=== PATIENT | female | born 1935 | race Caucasian/White ===

== ENCOUNTER 2018-11-17 00:39 | Emergency (ER) | payer MEDICARE ==
[~2018-11-17] VITALS: Ht 162.6 cm; Wt 73.9 kg
[2018-11-17] MEDS ORDERED: DILTIAZEM IV FOR DRIP 125 MG in NS (IVPB) 100 ML IV SCH (01:00)
[2018-11-17] MEDS ORDERED: DILTIAZEM 25 MG/5 ML INJ (CARDIZEM) VIAL IVP ONE (01:00)
[2018-11-17] MEDS ORDERED: ASPIRIN 81 MG CHEW (CHILDREN'S ASA) PO ONE (01:00)
[2018-11-17 01:31] LABS: BASOPHILS # (AUTO) 0.1 10^3/uL (0.0-0.1); BASOPHILS % (AUTO) 1 % (0-10); EOSINOPHILS # (AUTO) 0.3 10^3/uL (0.0-0.3); EOSINOPHILS % (AUTO) 3 % (0-10); HEMATOCRIT 41 % (35-52); HEMOGLOBIN 13.8 G/DL (11.5-16.0); LYMPHOCYTES # (AUTO) 2.7 X 10^3 (1.0-4.0); LYMPHOCYTES % (AUTO) 31 % (12-44); MEAN CORPUSCULAR HEMOGLOBIN 28 PG (25-34); MEAN CORPUSCULAR HGB CONC 34 G/DL (32-36); MEAN CORPUSCULAR VOLUME 84 FL (80-99); MEAN PLATELET VOLUME 10.6 FL (7.4-10.4); MONOCYTES # (AUTO) 1.2 X 10^3 (0.0-1.0); MONOCYTES % (AUTO) 14 % (0-12); NEUTROPHILS # (AUTO) 4.6 X 10^3 (1.8-7.8); NEUTROPHILS % (AUTO) 52 % (42-75); PLATELET COUNT 230 10^3/uL (130-400); RED CELL DISTRIBUTION WIDTH 13.2 % (10.0-14.5)
[2018-11-17 01:38] LABS: ALANINE AMINOTRANSFERASE 12 U/L (0-55); ALBUMIN 4.3 GM/DL (3.2-4.5); ALKALINE PHOSPHATASE 79 U/L (40-136); BILIRUBIN,TOTAL 0.5 MG/DL (0.1-1.0); BUN/CREATININE RATIO 16; CALCIUM 9.3 MG/DL (8.5-10.1); CARBON DIOXIDE 21 MMOL/L (21-32); CHLORIDE 96 MMOL/L (98-107); CREATININE SERUM 0.79 MG/DL (0.60-1.30); GFR ESTIMATED > 60; GLUCOSE 125 MG/DL (70-105); MAGNESIUM 2.1 MG/DL (1.6-2.4); POTASSIUM 4.1 MMOL/L (3.6-5.0); SODIUM 134 MMOL/L (135-145); TOTAL PROTEIN 7.5 GM/DL (6.4-8.2)
--- NOTE | 2018-11-17 01:39 | ED Chest Pain ---
General Stated Complaint: ARRHYTHMIA Source: patient, family Exam Limitations: no limitations History of Present Illness Date Seen by Provider: Nov 17, 2018 Time Seen by Provider: 00:45 Initial Comments Here with report of feeling palpitations and fast heart rate tonight. Does have history of atrial fibrillation and has had rapid ventricular response in the past. Not currently on a blood thinner. She reports that she's had several in the past and the son reports that she has had at least 3 in the past. Denies nausea or vomiting. Denies chest pain or breathing problems. Later patient admitted that she had fever recently and it was noted that she is going to the bathroom about every 15 minutes to urinate. Fever onset yesterday. Denies dysuria or diarrhea. Denies cough or breathing problems. States that she just has muscle aches. Timing/Duration: 1 hour Severity/Quality: moderate Location: central (palpitations) Radiation: no radiation Prior CP/Workup: cardiac cath, other (previous cardiac workup related to atrial fibrillation) Modifying Factors: improves with rest ASA po DRAG SAWYER: Yes (81 mg) NTG SL DRAG SAWYER: No Associated Symptoms: No abdominal pain, No back pain, No diaphoresis, No dizziness; fatigue; No nausea/vomiting, No shortness of breath, No weakness Allergies and Home Medications Allergies Coded Allergies: Beef Containing Products (Verified Allergy, Unknown, 11/17/18) Iodinated Contrast- Oral and IV Dye (Verified Allergy, Unknown, 11/17/18) Penicillins (Verified Allergy, Unknown, 11/17/18) Pork/Porcine Containing Products (Verified Allergy, Unknown, 11/17/18) Hjhiqps-Tgh-Don Reductase Inhibitor (Verified Allergy, Unknown, 11/17/18) propoxyphene (Verified Allergy, Unknown, 11/17/18) Patient Home Medication List Home Medication List Reviewed: Yes Review of Systems Review of Systems Constitutional: see HPI; No chills; fever EENTM: No Symptoms Reported Respiratory: No Symptoms Reported Cardiovascular: See HPI; Denies Chest Pain; Irregular Heart Rate, Palpitations Gastrointestinal: See HPI Genitourinary: No Symptoms Reported Musculoskeletal: muscle pain; No muscle weakness Skin: no symptoms reported All Other Systems Reviewed Negative Unless Noted: Yes Past Uatmojf-Qbvwdq-Ouqjvw Hx Past Med/Social Hx: Reviewed Nursing Past Med/Soc Hx Patient Social History Alcohol Use: Denies Use Recreational Drug Use: No Smoking Status: Never a Smoker Past Medical History Surgeries: Yes Breast, Orthopedic, Tonsillectomy Respiratory: No Cardiac: Yes High Cholesterol, Hypertension, Irregular Heartbeat Neurological: No Gastrointestinal: No Musculoskeletal: Yes Fractures Endocrine: Yes Hypothyroidsim HEENT: Yes Glaucoma Family Medical History Reviewed Nursing Family Hx No Pertinent Family Hx Physical Exam Vital Signs Vital Signs - First Documented 11/17/18 00:44 Temp 98.9 Pulse 133 Resp 18 B/P (MAP) 185/88 (120) Pulse Ox 95 O2 Delivery Room Air Capillary Refill : Height, Weight, BMI Height: '" Weight: lbs. oz. kg; BMI Method: General Appearance: No Apparent Distress, WD/WN HEENT: PERRL/EOMI, Pharynx Normal Neck: Non Tender, Supple Respiratory: Lungs Clear, Normal Breath Sounds Cardiovascular: No Murmur, Irregularly Irregular, Tachycardia Gastrointestinal: Non Tender, Soft Extremity: Normal Range of Motion, Non Tender Neurologic/Psychiatric: Alert, Oriented x3 Skin: Normal Color, Warm/Dry Focused Exam Lactate Level 11/17/18 02:25: Lactic Acid Level 0.73 Lactic Acid Level Laboratory Tests Test 11/17/18 02:25 Lactic Acid Level 0.73 MMOL/L (0.50-2.00) Progress/Results/Core Measures Results/Orders Lab Results Laboratory Tests Test 11/17/18 00:55 11/17/18 02:09 11/17/18 02:25 Range/Units White Blood Count 9.0 4.3-11.0 10^3/uL Red Blood Count 4.89 4.35-5.85 10^6/uL Hemoglobin 13.8 11.5-16.0 G/DL Hematocrit 41 35-52 % Mean Corpuscular Volume 84 80-99 FL Mean Corpuscular Hemoglobin 28 25-34 PG Mean Corpuscular Hemoglobin Concent 34 32-36 G/DL Red Cell Distribution Width 13.2 10.0-14.5 % Platelet Count 230 130-400 10^3/uL Mean Platelet Volume 10.6 H 7.4-10.4 FL Neutrophils (%) (Auto) 52 42-75 % Lymphocytes (%) (Auto) 31 12-44 % Monocytes (%) (Auto) 14 H 0-12 % Eosinophils (%) (Auto) 3 0-10 % Basophils (%) (Auto) 1 0-10 % Neutrophils # (Auto) 4.6 1.8-7.8 X 10^3 Lymphocytes # (Auto) 2.7 1.0-4.0 X 10^3 Monocytes # (Auto) 1.2 H 0.0-1.0 X 10^3 Eosinophils # (Auto) 0.3 0.0-0.3 10^3/uL Basophils # (Auto) 0.1 0.0-0.1 10^3/uL Prothrombin Time 13.1 12.2-14.7 SEC INR Comment 1.0 0.8-1.4 Activated Partial Thromboplast Time 32 24-35 SEC Sodium Level 134 L 135-145 MMOL/L Potassium Level 4.1 3.6-5.0 MMOL/L Chloride Level 96 L 98-107 MMOL/L Carbon Dioxide Level 21 21-32 MMOL/L Anion Gap 17 H 5-14 MMOL/L Blood Urea Nitrogen 13 7-18 MG/DL Creatinine 0.79 0.60-1.30 MG/DL Estimat Glomerular Filtration Rate > 60 BUN/Creatinine Ratio 16 Glucose Level 125 H 70-105 MG/DL Calcium Level 9.3 8.5-10.1 MG/DL Corrected Calcium 9.1 8.5-10.1 MG/DL Magnesium Level 2.1 1.6-2.4 MG/DL Total Bilirubin 0.5 0.1-1.0 MG/DL Aspartate Amino Transf (AST/SGOT) 16 5-34 U/L Alanine Aminotransferase (ALT/SGPT) 12 0-55 U/L Alkaline Phosphatase 79 40-136 U/L Myoglobin < 21.0 10.0-92.0 NG/ML Troponin I < 0.30 <0.30 NG/ML Total Protein 7.5 6.4-8.2 GM/DL Albumin 4.3 3.2-4.5 GM/DL Urine Color YELLOW Urine Clarity CLEAR Urine pH 6.5 5-9 Urine Specific [place] <1.005 1.016-1.022 Urine Protein NEGATIVE NEGATIVE Urine Glucose (UA) NEGATIVE NEGATIVE Urine Ketones NEGATIVE NEGATIVE Urine Nitrite NEGATIVE NEGATIVE Urine Bilirubin NEGATIVE NEGATIVE Urine Urobilinogen 0.2 NORMAL MG/DL Urine Leukocyte Esterase TRACE NEGATIVE Urine RBC (Auto) NEGATIVE NEGATIVE Urine RBC /HPF Urine WBC 0-2 /HPF Urine Crystals NONE /LPF Urine Bacteria /HPF Urine Casts NONE /LPF Urine Mucus NEGATIVE /LPF Urine Culture Indicated NO Lactic Acid Level 0.73 0.50-2.00 MMOL/L My Orders Orders - BYRON RAMIREZ MD Cbc With Automated Diff (11/17/18 00:57) Magnesium (11/17/18 00:57) Chest 1 View Ap/Pa Only (11/17/18 00:57) Ekg Tracing (11/17/18 00:57) Comprehensive Metabolic Panel (11/17/18 00:57) Myoglobin Serum (11/17/18 00:57) Protime With Inr (11/17/18 00:57) Partial Thromboplastin Time (11/17/18 00:57) O2 (11/17/18 00:57) Monitor-Rhythm Ecg Trace Only (11/17/18 00:57) Lipid Panel (11/18/18 06:00) Aspirin Chewable Tablet (Baby Aspirin Ch (11/17/18 01:00) Ed Iv/Invasive Line Start (11/17/18 00:57) Troponin I (11/17/18 00:57) Ns (Ivpb) (Sodium C... W/Diltiazem Iv Fo (11/17/18 01:00) Diltiazem Injection (Cardizem Injection) (11/17/18 01:00) Ns Iv 500 Ml (Sodium Chloride 0.9%) (11/17/18 02:09) Lactic Acid Analyzer (11/17/18 02:09) Ua Culture If Indicated (11/17/18 02:09) Blood Culture (11/17/18 02:09) Enoxaparin Injection (Lovenox Injection) (11/17/18 02:45) Medications Given in ED Current Medications Medications Dose Ordered Sig/Jaylan Route Start Time Stop Time Status Last Admin Dose Admin Aspirin 324 mg ONCE ONCE PO 11/17/18 01:00 11/17/18 01:01 DC 11/17/18 01:30 324 MG Diltiazem HCl 10 mg ONCE ONCE IVP 11/17/18 01:00 11/17/18 01:01 DC 11/17/18 01:29 10 MG Enoxaparin Sodium 70 mg ONCE ONCE SC 11/17/18 02:45 11/17/18 02:46 DC 11/17/18 03:01 70 MG Sodium Chloride 500 ml @ 0 mls/hr Q0M ONCE IV 11/17/18 02:09 11/17/18 02:11 DC 11/17/18 03:01 999 MLS/HR Vital Signs/I&O 11/17/18 11/17/18 00:44 01:30 Temp 98.9 Pulse 133 133 Resp 18 B/P (MAP) 185/88 (120) Pulse Ox 95 O2 Delivery Room Air Progress Progress Note : Progress Note Seen and evaluated. IV, labs, EKG and chest x-ray ordered. ASA 324 mg by mouth ordered. Cardizem 10 mg IV bolus and 10 mg per hour drip initiated. When patient later reported the fever, UA, blood cultures and lactic acid were ordered as wel l as normal saline 500 mL bolus. Monitor patient. 0322: Initiated transfer with [facility] and [facility]. Patient has had repeat bolus of 10 mg of Cardizem and had drip increased to 15 mg an hour. This was subsequently increased to 20 mg an hour and she is showing intermittent atrial fibrillation with rapid ventricular response. Patient did receive Lovenox 70 mg subcutaneous. 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 We did discuss risk and benefit of Lovenox and ultimately decided that she would be okay with trying that. She did not have any adverse effects after injection. The UA is negative. There is no other indication of infection. We will initiate transferred to [place]. [place] [facility] [place] is currently on diversion necessitating need for transfer outside of the area. Tertiary hospitals are equal distance and [facility] is with in that travel zone. Pending call back. 0342: Patient was accepted in the service of Dr. Brown. Patient's family agrees with plan. Initial ECG Impression Date: Nov 17, 2018 Initial ECG Impression Time: 00:47 Initial ECG Rate: 146 Initial ECG Rhythm: A Fib/Flutter Initial ECG Impression: Atrial Fibrillation w/RVR Comment Intrafibrillation with rapid ventricular rate. No evidence of ST elevation VA. No previous available for comparison. Interpreted by me. Diagnostic Imaging Diagonstic Imaging: Xray Plain Films/CT/US/NM/MRI: chest Comments No acute findings Reviewed: Reviewed by Me Departure Impression Primary Impression: Atrial fibrillation with rapid ventricular response Disposition: T-TRM HOSP Condition: Stable Transfer Time Spoke to Accepting Phy: 03:42 Transfer Facility: [facility], [place], [place] Method of Transfer: EMS Departure-Patient Inst. Referrals: PAUL BILLY MD (PCP/Family) Primary Care Physician BYRON RAMIREZ MD Nov 17, 2018 01:39
[2018-11-17 01:53] LABS: PROTHROMBIN TIME PATIENT 13.1 SEC (12.2-14.7)
[2018-11-17] MEDS ORDERED: NS IV 500 ML 500 ML IV ONE (02:09)
[2018-11-17 02:28] LABS: BILIRUBIN,URINE NEGATIVE (NEGATIVE); CLARITY,URINE CLEAR; COLOR,URINE YELLOW; GLUCOSE, URINE (UA) NEGATIVE (NEGATIVE); KETONES,URINE NEGATIVE (NEGATIVE); LEUKOCYTE ESTERASE ,URINE TRACE (NEGATIVE); NITRITE,URINE NEGATIVE (NEGATIVE); PH,URINE 6.5 (5-9); PROTEIN,URINE NEGATIVE (NEGATIVE); UROBILINOGEN,URINE 0.2 MG/DL (NORMAL); WBC,URINE 0-2 /HPF
[2018-11-17] MEDS ORDERED: ENOXAPARIN 80 MG/0.8 ML (LOVENOX) SYR SC ONE (02:45)
[2018-11-17 04:46] VITALS: BP 141/77
--- NOTE | 2018-11-17 09:00 | Diagnostic Imaging Report ---
EXAMINATION: Chest radiograph, portable AP view. DATE: November 17, 2018 at 0137 hours. INDICATION: 83-year-old female, chest pain. COMPARISON: None. FINDINGS: Heart size and mediastinal contours are unremarkable. There are aortic calcifications. There is no identified pneumothorax. There is no large pleural effusion. There are bilateral interstitial opacities. Comparison imaging is not available to assess for possible stability. There are surgical clips along the right lateral chest and projecting near the level of the right hemidiaphragm. IMPRESSION: 1. Bilateral interstitial opacities. Comparison imaging is not available to assess for potential stability. Differential diagnostic considerations would include pulmonary interstitial edema, chronic lung changes, or atypical infectious process. Report was called/faxed to [facility] ER by santiago at 8:59 am. HARRY Lundberg, was also notified. Dictated by: Dictated on workstation # [id number]
--- NOTE | 2018-11-17 09:37 | NUR ---
Faxed a corrected copy of AP chest xray reviewed this a.m. by radiologist to [facility] @ [facility].
== END 2018-11-17 04:00 | disposition short-term general hospital (02) ==
LOC: ER FS 00:42
DX: I48.91 Unspecified atrial fibrillation (principal); I10 Essential (primary) hypertension; E78.00 Pure hypercholesterolemia, unspecified; E03.9 Hypothyroidism, unspecified; Z91.018 Allergy to other foods; Z88.0 Allergy status to penicillin; Z88.8 Allergy status to other drugs, medicaments and biological substances; Z91.041 Radiographic dye allergy status; Z90.89 Acquired absence of other organs
CPT/HCPCS: 36415; 71045; 80053; 81000; 83605; 83735; 83874; 84484; 85025; 85610; 85730; 87040; 93005; 93041

== ENCOUNTER 2019-03-01 02:29 | Emergency (ER) | payer MEDICARE ==
[~2019-03-01] VITALS: Ht 154.9 cm; Wt 72.7 kg
[2019-03-01] MEDS ORDERED: NS IV 1000 ML 1,000 ML IV SCH (02:45)
[2019-03-01] MEDS ORDERED: meTOprolol 5 MG/5 ML (LOPRESSOR) VIAL IV ONE ×4 (02:45→03:45)
--- NOTE | 2019-03-01 02:52 | ED Cardiac General ---
History of Present Illness General Chief Complaint: Cardiac/General Problems Stated Complaint: A-FIB,RVR Nursing Triage Note: PT. CAME TO THE ER BECAUSE SHE WAS IN A-FIB WITH RVR RATE FROM 139 TO 150. PT. HAS A HISTORY OF A-FIB WITH RVR. Source: patient, family Exam Limitations: no limitations History of Present Illness Date Seen by Provider: Mar 01, 2019 Time Seen by Provider: 02:40 Initial Comments For 30 minutes prior to arrival, feeling funny with rapid heart rate. Hx of A. fib w multiple occurrences. Denies CP or SOA, denies abdominal pain. Allergies and Home Medications Allergies Coded Allergies: Beef Containing Products (Verified Allergy, Unknown, 11/17/18) Iodinated Contrast- Oral and IV Dye (Verified Allergy, Unknown, 11/17/18) Penicillins (Verified Allergy, Unknown, 11/17/18) Pork/Porcine Containing Products (Verified Allergy, Unknown, 11/17/18) Yvjafja-Sxu-Aon Reductase Inhibitor (Verified Allergy, Unknown, 11/17/18) propoxyphene (Verified Allergy, Unknown, 11/17/18) Home Medications Metoprolol Tartrate 25 Mg Tablet, 25 MG PO BID Prescribed by: CORTNEY ARRIAGA on 03/01/19 6113 Patient Home Medication List Home Medication List Reviewed: Yes Review of Systems Review of Systems Constitutional: No chills, No dizziness, No fever; malaise; No weakness Respiratory: Denies Cough, Denies Orthopnea, Denies Shortness of Air Cardiovascular: Denies Chest Pain; Irregular Heart Rate; Denies Lightheadedness; Palpitations; Denies Syncope Gastrointestinal: Denies Abdomen Distended, Denies Abdominal Pain, Denies Nausea, Denies Vomiting Musculoskeletal: No back pain, No neck pain Past Xdxzelw-Tmziaz-Buzvlj Hx Past Med/Social Hx: Reviewed Nursing Past Med/Soc Hx Patient Social History Recent Foreign Travel: No Contact w/Someone Who Travel: No Recent Infectious Disease Expo: No Past Medical History Surgeries: Yes Breast, Orthopedic, Tonsillectomy Respiratory: No Cardiac: Yes High Cholesterol, Hypertension, Irregular Heartbeat Neurological: No Gastrointestinal: No Musculoskeletal: Yes Fractures Endocrine: Yes Hypothyroidsim HEENT: Yes Glaucoma Family Medical History No Pertinent Family Hx Physical Exam Vital Signs Vital Signs - First Documented 03/01/19 03/01/19 02:30 03:57 Temp 36.3 Pulse 146 Resp 20 B/P (MAP) 176/82 (113) Pulse Ox 99 O2 Delivery Room Air Capillary Refill : Less Than 3 Seconds Height, Weight, BMI Height: 5'4.00" Weight: 163lbs. 0oz. 73.643566ef; 30.00 BMI Method:Stated General Appearance: No Apparent Distress, WD/WN HEENT: PERRL/EOMI, Normal ENT Inspection Neck: Full Range of Motion, Normal Inspection, Non Tender Respiratory: Chest Non Tender, Lungs Clear, No Respiratory Distress Cardiovascular: No Edema, No Gallop, No JVD, Normal Peripheral Pulses, Irregularly Irregular, Tachycardia Gastrointestinal: Normal Bowel Sounds, Non Tender, Soft Extremity: Normal Inspection, Non Tender, No Pedal Edema Progress/Results/Core Measures Results/Orders Lab Results Laboratory Tests Test 03/01/19 02:36 Range/Units White Blood Count 6.9 4.3-11.0 10^3/uL Red Blood Count 4.96 4.35-5.85 10^6/uL Hemoglobin 13.8 11.5-16.0 G/DL Hematocrit 42 35-52 % Mean Corpuscular Volume 85 80-99 FL Mean Corpuscular Hemoglobin 28 25-34 PG Mean Corpuscular Hemoglobin Concent 33 32-36 G/DL Red Cell Distribution Width 13.6 10.0-14.5 % Platelet Count 242 130-400 10^3/uL Mean Platelet Volume 10.5 H 7.4-10.4 FL Neutrophils (%) (Auto) 42 42-75 % Lymphocytes (%) (Auto) 42 12-44 % Monocytes (%) (Auto) 13 H 0-12 % Eosinophils (%) (Auto) 2 0-10 % Basophils (%) (Auto) 1 0-10 % Neutrophils # (Auto) 2.9 1.8-7.8 X 10^3 Lymphocytes # (Auto) 2.9 1.0-4.0 X 10^3 Monocytes # (Auto) 0.9 0.0-1.0 X 10^3 Eosinophils # (Auto) 0.2 0.0-0.3 10^3/uL Basophils # (Auto) 0.1 0.0-0.1 10^3/uL Sodium Level 138 135-145 MMOL/L Potassium Level 4.2 3.6-5.0 MMOL/L Chloride Level 103 98-107 MMOL/L Carbon Dioxide Level 22 21-32 MMOL/L Anion Gap 13 5-14 MMOL/L Blood Urea Nitrogen 17 7-18 MG/DL Creatinine 0.91 0.60-1.30 MG/DL Estimat Glomerular Filtration Rate 59 BUN/Creatinine Ratio 19 Glucose Level 121 H 70-105 MG/DL Calcium Level 9.2 8.5-10.1 MG/DL Corrected Calcium 8.9 8.5-10.1 MG/DL Magnesium Level 2.2 1.6-2.4 MG/DL Total Bilirubin 0.3 0.1-1.0 MG/DL Aspartate Amino Transf (AST/SGOT) 20 5-34 U/L Alanine Aminotransferase (ALT/SGPT) 13 0-55 U/L Alkaline Phosphatase 84 40-136 U/L Troponin I < 0.30 <0.30 NG/ML Total Protein 7.1 6.4-8.2 GM/DL Albumin 4.4 3.2-4.5 GM/DL My Orders Orders - CORTNEY ARRIAGA DO Metoprolol Tartrate Injection (Lopressor (03/01/19 02:45) Ns Iv 1000 Ml (Sodium Chloride 0.9%) (03/01/19 02:45) Ed Iv/Invasive Line Start (03/01/19 02:43) Cbc With Automated Diff (03/01/19 02:43) Comprehensive Metabolic Panel (03/01/19 02:43) Troponin I Fs (03/01/19 02:43) Chest 1 View Ap/Pa Only (03/01/19 02:43) Magnesium (03/01/19 02:45) Ekg Tracing (03/01/19 02:53) Metoprolol Tartrate Injection (Lopressor (03/01/19 03:15) Metoprolol Tartrate Injection (Lopressor (03/01/19 03:15) Metoprolol Tartrate (Ir) Tab (Lopressor (03/01/19 03:15) Metoprolol Tartrate Injection (Lopressor (03/01/19 03:45) Medications Given in ED Current Medications Medications Dose Ordered Sig/Jaylan Route Start Time Stop Time Status Last Admin Dose Admin Metoprolol Tartrate 5 mg ONCE ONCE IV 03/01/19 02:45 03/01/19 02:46 DC 03/01/19 02:57 5 MG Metoprolol Tartrate 5 mg ONCE ONCE IV 03/01/19 03:15 03/01/19 03:16 DC 03/01/19 03:09 5 MG Metoprolol Tartrate 5 mg ONCE ONCE IV 03/01/19 03:15 03/01/19 03:16 DC 03/01/19 03:18 5 MG Metoprolol Tartrate 5 mg ONCE ONCE IV 03/01/19 03:45 03/01/19 03:46 DC 03/01/19 03:40 5 MG Metoprolol Tartrate 25 mg ONCE ONCE PO 03/01/19 03:15 03/01/19 03:16 DC 03/01/19 03:16 25 MG Vital Signs/I&O 03/01/19 03/01/19 02:30 03:57 Temp 36.3 36.3 Pulse 146 51 Resp 20 16 B/P (MAP) 176/82 (113) 126/80 Pulse Ox 99 O2 Delivery Room Air Room Air Blood Pressure Mean: 113 POS Progress Progress Note : Progress Note given 5mg metoprolol IV x 4 and 25mg po and finally converted and slowed to rate of 50. Patient tolerated well. Discussed Cardio f/u and Rx given to take as needed for rapid heart rate Initial ECG Impression Time: 02:40 Initial ECG Rhythm: A Fib/Flutter Initial ECG Impression: Atrial Fibrillation w/RVR Initial ECG Comparisson: No Previous ECG Available Departure Impression Primary Impression: Atrial fibrillation Qualified Codes: I48.0 - Paroxysmal atrial fibrillation Disposition: 01 HOME, SELF-CARE Condition: Improved Departure-Patient Inst. Referrals: PAUL BILLY MD (PCP/Family) Primary Care Physician Patient Instructions: Atrial Fibrillation (DC) Scripts Metoprolol Tartrate (Metoprolol Tartrate) 25 Mg Tablet 25 MG PO BID for Supraventricular Tachycar, #20 TAB Prov: CORTNEY ARRIAGA DO 03/01/19 CORTNEY ARRIAGA DO Mar 01, 2019 02:52 POS
[2019-03-01 03:10] LABS: BASOPHILS % (AUTO) 1 % (0-10); EOSINOPHILS % (AUTO) 2 % (0-10); HEMATOCRIT 42 % (35-52); HEMOGLOBIN 13.8 G/DL (11.5-16.0); LYMPHOCYTES % (AUTO) 42 % (12-44); MEAN CORPUSCULAR HEMOGLOBIN 28 PG (25-34); MEAN CORPUSCULAR HGB CONC 33 G/DL (32-36); MEAN CORPUSCULAR VOLUME 85 FL (80-99); MEAN PLATELET VOLUME 10.5 FL (7.4-10.4); MONOCYTES % (AUTO) 13 % (0-12); NEUTROPHILS % (AUTO) 42 % (42-75); PLATELET COUNT 242 10^3/uL (130-400); RED CELL DISTRIBUTION WIDTH 13.6 % (10.0-14.5); WHITE BLOOD COUNT 6.9 10^3/uL (4.3-11.0)
[2019-03-01 03:11] LABS: BASOPHILS # (AUTO) 0.1 10^3/uL (0.0-0.1); EOSINOPHILS # (AUTO) 0.2 10^3/uL (0.0-0.3); LYMPHOCYTES # (AUTO) 2.9 X 10^3 (1.0-4.0); MONOCYTES # (AUTO) 0.9 X 10^3 (0.0-1.0); NEUTROPHILS # (AUTO) 2.9 X 10^3 (1.8-7.8)
[2019-03-01] MEDS ORDERED: meTOprolol TARTRATE 25 MG (LOPRESSOR) TABLET PO ONE (03:15)
--- NOTE | 2019-03-01 03:30 | NUR ---
AFTER THE FIRST DOSE OF LOPRESSOR THE PT CONVERTED TO A SR BUT WENT RIGHT BACK INTO A-FIB.
[2019-03-01 03:31] LABS: POTASSIUM 4.2 MMOL/L (3.6-5.0); SODIUM 138 MMOL/L (135-145)
[2019-03-01 03:32] LABS: ALANINE AMINOTRANSFERASE 13 U/L (0-55); ALBUMIN 4.4 GM/DL (3.2-4.5); ALKALINE PHOSPHATASE 84 U/L (40-136); BILIRUBIN,TOTAL 0.3 MG/DL (0.1-1.0); BUN/CREATININE RATIO 19; CALCIUM 9.2 MG/DL (8.5-10.1); CARBON DIOXIDE 22 MMOL/L (21-32); CHLORIDE 103 MMOL/L (98-107); CREATININE SERUM 0.91 MG/DL (0.60-1.30); GFR ESTIMATED 59; GLUCOSE 121 MG/DL (70-105); MAGNESIUM 2.2 MG/DL (1.6-2.4); TOTAL PROTEIN 7.1 GM/DL (6.4-8.2)
[2019-03-01 03:57] VITALS: BP 126/80
[2019-03-01] MEDS ORDERED: METO-333 PO (03:58)
--- NOTE | 2019-03-01 07:00 | Diagnostic Imaging Report ---
INDICATION: Atrial fibrillation with rapid ventricular rate. Comparison made to prior study from 11/17/2018. FINDINGS: Heart size unchanged from previous examination. Some mild interstitial changes within the lungs appear chronic. There is no effusion. There is no pneumothorax. There is no current evidence to suggest failure. There are multiple surgical clips along the right lateral chest wall. IMPRESSION: 1. No radiographic evidence of an acute cardiopulmonary process. There is no current edema. Heart size appears stable. Dictated by: Dictated on workstation # [id number]
== END 2019-03-01 04:02 | disposition home or self-care (01) ==
LOC: EDUNIT# 02:29 → ER FS 02:31
DX: I48.91 Unspecified atrial fibrillation (principal); I10 Essential (primary) hypertension; E78.00 Pure hypercholesterolemia, unspecified; E03.9 Hypothyroidism, unspecified; Z88.0 Allergy status to penicillin; Z91.041 Radiographic dye allergy status; Z88.8 Allergy status to other drugs, medicaments and biological substances; Z90.89 Acquired absence of other organs
CPT/HCPCS: 36415; 71045; 80053; 83735; 84484; 85025; 93005; 96361; 96374

== ENCOUNTER 2019-07-01 04:19 | Emergency (ER) | payer MEDICARE ==
[~2019-07-01] VITALS: Ht 160 cm; Wt 73.9 kg
[~2019-07-01 04:19] MED LIST: METO-333 PO
--- OUTSIDE RECORDS SUMMARY | 2019-07-01 04:26 | XMS REPORT | Continuity of Care Document ---
Author Organization Unknown Address Unknown Phone Unavailable Allergies Active Description Code Type Severity Reaction Onset Reported/Identified Relationship to Patient Clinical Status Yes Beef Containing Products [id number] Drug Allergy Unknown N/A 11/17/2018 Yes Iodinated Contrast Media [id number] Drug Allergy Unknown N/A 11/17/2018 Yes Iodinated Contrast- Oral and IV Dye [id number] Drug Allergy Unknown N/A 11/17/2018 Yes Penicillins [id number] Drug Aller gy Unknown N/A 11/17/2018 Yes Pork/Porcine Containing Products [id number] Drug Allergy Unknown N/A 019 Yes propoxyphene [id number] Drug Allergy Unknown N/A 11/17/2018 Yes Jdqamdi-Kcn-Uph Reductase Inhibitor [id number] Drug Allergy Unknown N/A 11/17/2018 Medications There is no data. Problems Date Dx Coded Attending Type Code Diagnosis Diagnosed By 11/17/2018 BYRON RAMIREZ MD Ot E03.9 HYPOTHYROIDISM, UNSPECIFIED 11/17/2018 BYRON RAMIREZ MD Ot E78.00 PURE HYPERCHOLESTEROLEMIA, UNSPECIFIED 11/17/2018 BYRON RAMIREZ MD Ot I10 ESSENTIAL (PRIMARY) HYPERTENSION 11/17/2018 BYRON RAMIREZ MD Ot I48.91 UNSPECIFIED ATRIAL FIBRILLATION 11/17/2018 BYRON RAMIREZ MD Ot R00.2 PALPITATIONS 11/17/2018 BYRON RAMIREZ MD Ot Z88.0 ALLERGY STATUS TO PENICILLIN 11/17/2018 BYRON RAMIREZ MD Ot Z88.8 ALLERGY STATUS TO OTH DRUG/MEDS/BIOL SUB 11/17/2018 BYRON RAMIREZ MD Ot Z90.89 ACQUIRED ABSENCE OF OTHER ORGANS 11/17/2018 BYRON RAMIREZ MD Ot Z91.018 ALLERGY TO OTHER FOODS 11/17/2018 BYRON RAMIREZ MD Ot Z91.041 RADIOGRAPHIC DYE ALLERGY STATUS 11/20/2018 BYRON ARMIREZ MD Ot E03.9 HYPOTHYROIDISM, UNSPECIFIED 11/20/2018 BYRON RAMIREZ MD Ot E78.00 PURE HYPERCHOLESTEROLEMIA, UNSPECIFIED 11/20/2018 BYRON RAMIREZ MD Ot I10 ESSENTIAL (PRIMARY) HYPERTENSION 11/20/2018 BYRON RAMIREZ MD Ot I48.91 UNSPECIFIED ATRIAL FIBRILLATION 11/20/2018 BYRON RAMIREZ MD Ot R00.2 PALPITATIONS 11/20/2018 BYRON RAMIREZ MD Ot Z88.0 ALLERGY STATUS TO PENICILLIN 11/20/2018 BYRON RAMIREZ MD Ot Z88.8 ALLERGY STATUS TO OTH DRUG/MEDS/BIOL SUB 11/20/2018 BYRON RAMIREZ MD Ot Z90.89 ACQUIRED ABSENCE OF OTHER ORGANS 11/20/2018 BYRON RAMIREZ MD Ot Z91.018 ALLERGY TO OTHER FOODS 11/20/2018 BYRON RAMIREZ MD Ot Z91.041 RADIOGRAPHIC DYE ALLERGY STATUS 03/01/2019 ROVENSTINE DO, CORTNEY L Ot E03.9 HYPOTHYROIDISM, UNSPECIFIED 03/01/2019 ROVENSTINE DO, CORTNEY L Ot E78.00 PURE HYPERCHOLESTEROLEMIA, UNSPECIFIED 03/01/2019 ROVENSTINE DO, CORTNEY L Ot I10 ESSENTIAL (PRIMARY) HYPERTENSION 03/01/2019 ROVENSTINE DO, CORTNEY L Ot I48.91 UNSPECIFIED ATRIAL FIBRILLATION 03/01/2019 ROVENSTINE DO, CORTNEY L Ot Z88.0 ALLERGY STATUS TO PENICILLIN 03/01/2019 ROVENSTINE DO, CORTNEY L Ot Z88.8 ALLERGY STATUS TO OTH DRUG/MEDS/BIOL SUB 03/01/2019 ROVENSTINE DO, CORTNEY L Ot Z90.89 ACQUIRED ABSENCE OF OTHER ORGANS 03/01/2019 ROVENSTINE DO, CORTNEY L Ot Z91.041 RADIOGRAPHIC DYE ALLERGY STATUS 03/04/2019 ROVENSTINE DO, CORTNEY L Ot E03.9 HYPOTHYROIDISM, UNSPECIFIED 03/04/2019 ROVENSTINE DO, CORTNEY L Ot E78.00 PURE HYPERCHOLESTEROLEMIA, UNSPECIFIED 03/04/2019 ROVENSTINE DO, CORTNEY L Ot I10 ESSENTIAL (PRIMARY) HYPERTENSION 03/04/2019 ROVENSTINE DO, CORTNEY L Ot I48.91 UNSPECIFIED ATRIAL FIBRILLATION 03/04/2019 ROVENSTINE CORTNEY CHAPMAN Ot Z88.0 ALLERGY STATUS TO PENICILLIN 03/04/2019 TITOVENSTINE CORTNEY CHAPMAN Ot Z88.8 ALLERGY STATUS TO OTH DRUG/MEDS/BIOL SUB 03/04/2019 AURYSTCORTNEY HOWARD DO Ot Z90.89 ACQUIRED ABSENCE OF OTHER ORGANS 03/04/2019 AURYSTCORTNEY HOWARD DO Ot Z91.041 RADIOGRAPHIC DYE ALLERGY STATUS Procedures There is no data. Results Test Result Range LIPID PANEL - 08/02/18 08:14 CHOLESTEROL, TOTAL 230 mg/dL <200 HDL CHOLESTEROL 53 mg/dL >50 TRIGLYCERIDES 148 mg/dL <150 LDL-CHOLESTEROL 150 mg/dL (calc) NRG CHOL/HDLC RATIO 4.3 (calc) <5.0 NON HDL CHOLESTEROL 177 mg/dL (calc) <13 0 CMP - 08/02/18 08:14 GLUCOSE 94 mg/dL 65-99 UREA NITROGEN (BUN) 11 mg/dL 7-25 CREATININE 0.85 mg/dL 0.60-0.88 eGFR NON-AFR. GABONESE 64 mL/min/1.73m2 > OR = 60 eGFR 74 mL/min/1.73m2 > OR = 60 BUN/CREATININE RATIO NOT APPLICABLE (calc) 6-22 SODIUM 137 mmol/L 135-146 POTASSIUM 4.2 mmol/L 3.5-5.3 CHLORIDE 103 mmol/L 98-110 CARBON DIOXIDE 24 mmol/L 20-32 CALCIUM 9.4 mg/dL 8.6-10.4 PROTEIN, TOTAL 7.0 g/dL 6.1-8.1 ALBUMIN 4.6 g/dL 3.6-5.1 GLOBULIN 2.4 g/dL (calc) 1.9-3.7 ALBUMIN/GLOBULIN RATIO 1.9 (calc) 1.0-2. 5 BILIRUBIN, TOTAL 0.6 mg/dL 0.2-1.2 ALKALINE PHOSPHATASE 67 U/L 33-130 AST 22 U/L 10-35 ALT 14 U/L 6-29 TSH - 08/02/18 08:14 TSH 5.18 mIU/L 0.40-4.50 TSH - 09/17/18 09:24 TSH 1.63 mIU/L 0.40-4.50 Complete blood count (CBC) with automate d white blood cell (WBC) differential - 11/17/18 00:55 Blood leukocytes automated count (number/volume) 9.0 10*3/uL 4.3-11.0 Blood erythrocytes automated count (number/volume) 4.89 10*6/uL 4.35-5.85 Venous blood hemoglobin measurement (mass/volume) 13.8 g/dL 11.5-16.0 Blood hematocrit (volume fraction) 41 % 35-52 Automated erythrocyte mean corpuscular volume 84 [ foz_us] 80-99 Automated erythrocyte mean corpuscular h emoglobin (mass per erythrocyte) 28 pg 25-34 Automated erythrocyte mean corpuscular h emoglobin concentration measurement (mass/volume) 34 g/dL 32-36 Automated erythrocyte distribution width ratio 13. 2 % 10.0- 14.5 Automated blood platelet count (count/volume) 230 10*3/uL 130-400 Automated blood platelet mean volume measurement 10.6 [foz_us] 7.4-10.4 Automated blood neutrophils/100 leukocytes 52 % 42-75 Automated blood lymphocytes/100 leukocytes 31 % 12-44 Blood monocytes/100 leukocytes 14 % 0-12 Automated blood eosinophils/100 leukocytes 3 % 0-10 Automated blood basophils/100 leukocytes 1 % 0-10 Blood neutrophils automated count (number/volume) 4.6 10*3 1.8-7.8 Blood lymphocytes automated count (number/volume) 2.7 10*3 1.0-4.0 Blood monocytes automated count (number/volume) 1. 2 10*3 0.0-1.0 Automated eosinophil count 0.3 10*3/uL 0 .0-0.3 Automated blood basophil count (count/volume) 0.1 10*3/uL 0.0-0.1 Serum or plasma troponin i.cardiac measu rement (mass/volume) - 11/17/18 00:55 Serum or plasma troponin i.cardiac measurement (mass/v olume) < ng/mL <0.30 Comprehensive metabolic panel - 11/17/18 00:55 Serum or plasma sodium measurement (moles/volume) 134 mmol/L 135-145 Serum or plasma potassium measurement (moles/volume) 4.1 mmol/L 3.6-5.0 Serum or plasma chloride measurement (moles/volume) 96 mmol/L 98-107 Carbon dioxide 21 mmol/L 21-32 Serum or plasma anion gap determination (moles/volume) 17 mmol/L 5-14 Serum or plasma urea nitrogen measurement (mass/volume ) 13 mg/dL 7-18 Serum or plasma creatinine measurement (mass/volume) 0.79 mg/dL 0.60-1.30 Serum or plasma urea nitrogen/creatinine mass ratio 16 NRG Serum or plasma creatinine measurement w ith calculation of estimated glomerular filtration rate > NRG Serum or plasma glucose measurement (mass/volume) 125 mg/dL 70-105 Serum or plasma calcium measurement (mass/volume) 9.3 mg/dL 8.5-10.1 Serum or plasma total bilirubin measurement (mass/volu me) 0.5 mg/dL 0.1-1.0 Serum or plasma alkaline phosphatase shannon surement (enzymatic activity/volume) 79 U/L 40-136 Serum or plasma aspartate aminotransfera se measurement (enzymatic activity/volume) 16 U/L 5-34 Serum or plasma alanine aminotransferase measurement (enzymatic activity/volume) 12 U/L 0-55 Serum or plasma protein measurement (mass/volume) 7.5 g/dL 6.4-8.2 Serum or plasma albumin measurement (mass/volume) 4.3 g/dL 3.2-4.5 CALCIUM CORRECTED 9.1 mg/dL 8.5-10.1 Magnesium - 11/17/18 00:55 Magnesium 2.1 mg/dL 1.6-2.4 PT panel in platelet poor plasma by coag ulation assay - 11/17/18 00:55 Prothrombin time (PT) in platelet poor plasma by coagu lation assay 13.1 s 12.2-14.7 INR in platelet poor plasma or blood by coagulation as say 1.0 0.8-1.4 Activated partial thromboplastin time (a PTT) in platelet poor plasma bycoagulation assay - 11/17/18 00:55 Activated partial thromboplastin time (a PTT) in platelet poor plasma bycoagulation assay 32 s 24-35 Myoglobin, serum - 11/17/18 00:55 Myoglobin, serum < ng/mL 10.0-92.0 Complete urinalysis with reflex to cultu re - 11/17/18 02:09 Urine color determination YELLOW NRG Urine clarity determination CLEAR NR G Urine pH measurement by test strip 6.5 5-9 Specific gravity of urine by test strip < 1.016-1.022 Urine protein assay by test strip, semi-quantitative NEGATIVE NEGATIVE Urine glucose detection by automated test strip NE GATIVE NEGATIVE Erythrocytes detection in urine sediment by light micr oscopy NEGATIVE NEGATIVE Urine ketones detection by automated test strip NE GATIVE NEGATIVE Urine nitrite detection by test strip NEGATIVE NEGATIVE Urine total bilirubin detection by test strip NEGA TIVE NEGATIVE Urine urobilinogen measurement by automated test strip (mass/volume) 0.2 mg/dL NORMAL Urine leukocyte esterase detection by dipstick TRA CE NEGATIVE Automated urine sediment leukocyte count by microscopy (number/high power field) [HPF] NRG Crystals detection in urine sediment by light microsco py NONE NRG Casts detection in urine sediment by light microscopy NONE NRG Mucus detection in urine sediment by light microscopy NEGATIVE NRG Complete urinalysis with reflex to culture NO NRG Blood lactic acid measurement (moles/vol ume) - 11/17/18 02:25 Blood lactic acid measurement (moles/volume) 0.73 mmol/L 0.50-2.00 Bacterial blood culture - 11/17/18 02:25 Bacterial blood culture NG NRG Bacterial blood culture - 11/17/18 03:47 Bacterial blood culture NG NRG Complete blood count (CBC) with automate d white blood cell (WBC) differential - 03/01/19 02:36 Blood leukocytes automated count (number/volume) 6.9 10*3/uL 4.3-11.0 Blood erythrocytes automated count (number/volume) 4.96 10*6/uL 4.35-5.85 Venous blood hemoglobin measurement (mass/volume) 13.8 g/dL 11.5-16.0 Blood hematocrit (volume fraction) 42 % 35-52 Automated erythrocyte mean corpuscular volume 85 [ foz_us] 80-99 Automated erythrocyte mean corpuscular h emoglobin (mass per erythrocyte) 28 pg 25-34 Automated erythrocyte mean corpuscular h emoglobin concentration measurement (mass/volume) 33 g/dL 32-36 Automated erythrocyte distribution width ratio 13. 6 % 10.0- 14.5 Automated blood platelet count (count/volume) 242 10*3/uL 130-400 Automated blood platelet mean volume measurement 10.5 [foz_us] 7.4-10.4 Automated blood neutrophils/100 leukocytes 42 % 42-75 Automated blood lymphocytes/100 leukocytes 42 % 12-44 Blood monocytes/100 leukocytes 13 % 0-12 Automated blood eosinophils/100 leukocytes 2 % 0-10 Automated blood basophils/100 leukocytes 1 % 0-10 Blood neutrophils automated count (number/volume) 2.9 10*3 1.8-7.8 Blood lymphocytes automated count (number/volume) 2.9 10*3 1.0-4.0 Blood monocytes automated count (number/volume) 0. 9 10*3 0.0-1.0 Automated eosinophil count 0.2 10*3/uL 0 .0-0.3 Automated blood basophil count (count/volume) 0.1 10*3/uL 0.0-0.1 Comprehensive metabolic panel - 03/01/19 02:36 Serum or plasma sodium measurement (moles/volume) 138 mmol/L 135-145 Serum or plasma potassium measurement (moles/volume) 4.2 mmol/L 3.6-5.0 Serum or plasma chloride measurement (moles/volume) 103 mmol/L 98-107 Carbon dioxide 22 mmol/L 21-32 Serum or plasma anion gap determination (moles/volume) 13 mmol/L 5-14 Serum or plasma urea nitrogen measurement (mass/volume ) 17 mg/dL 7-18 Serum or plasma creatinine measurement (mass/volume) 0.91 mg/dL 0.60-1.30 Serum or plasma urea nitrogen/creatinine mass ratio 19 NRG Serum or plasma creatinine measurement w ith calculation of estimated glomerular filtration rate 59 NRG Serum or plasma glucose measurement (mass/volume) 121 mg/dL 70-105 Serum or plasma calcium measurement (mass/volume) 9.2 mg/dL 8.5-10.1 Serum or plasma total bilirubin measurement (mass/volu me) 0.3 mg/dL 0.1-1.0 Serum or plasma alkaline phosphatase shannon surement (enzymatic activity/volume) 84 U/L 40-136 Serum or plasma aspartate aminotransfera se measurement (enzymatic activity/volume) 20 U/L 5-34 Serum or plasma alanine aminotransferase measurement (enzymatic activity/volume) 13 U/L 0-55 Serum or plasma protein measurement (mass/volume) 7.1 g/dL 6.4-8.2 Serum or plasma albumin measurement (mass/volume) 4.4 g/dL 3.2-4.5 CALCIUM CORRECTED 8.9 mg/dL 8.5-10.1 Magnesium - 03/01/19 02:36 Magnesium 2.2 mg/dL 1.6-2.4 TROPONIN I FS - 03/01/19 02:36 TROPONIN I FS < 0.30 <0.30 CMP - 05/26/19 10:41 GLUCOSE 120 mg/dL 65-139 UREA NITROGEN (BUN) 13 mg/dL 7-25 CREATININE 0.97 mg/dL 0.60-0.88 eGFR NON-AFR. GABONESE 54 mL/min/1.73m2 > OR = 60 eGFR 63 mL/min/1.73m2 > OR = 60 BUN/CREATININE RATIO 13 (calc) 6-22 SODIUM 135 mmol/L 135-146 POTASSIUM 4.2 mmol/L 3.5-5.3 CHLORIDE 100 mmol/L 98-110 CARBON DIOXIDE 23 mmol/L 20-32 CALCIUM 9.7 mg/dL 8.6-10.4 PROTEIN, TOTAL 7.2 g/dL 6.1-8.1 ALBUMIN 4.6 g/dL 3.6-5.1 GLOBULIN 2.6 g/dL (calc) 1.9-3.7 ALBUMIN/GLOBULIN RATIO 1.8 (calc) 1.0-2. 5 BILIRUBIN, TOTAL 0.6 mg/dL 0.2-1.2 ALKALINE PHOSPHATASE 73 U/L 37-153 AST 19 U/L 10-35 ALT 16 U/L 6-29 TSH - 05/26/19 10:41 TSH 2.03 mIU/L 0.40-4.50 Encounters ACCT No. Visit Date/Time Discharge Status Pt. Type Provider Facility Loc./Unit Complaint [id number] 01/24/2019 09:20:00 01/24/2019 23:59: 59 [facility] Outpatient PAUL BILLY [facility] [id number] 05/26/2019 09:00:00 Document Registration [id number] 09/17/2018 09:30:00 Document Registration [id number] 08/02/2018 08:30:00 Document Registration [id number] 03/01/2019 02:31:00 019 04:02:00 DIS Emergency CORTNEY ARRIAGA DO [facility] FS A-FIB,RVR [id number] 11/17/2018 00:42:00 019 04:00:00 DIS Emergency ASHLEY RYAN, [address] [facility] FS PALPITATIONS
[2019-07-01] MEDS ORDERED: NS IV 500 ML 500 ML IV STA (04:39)
--- NOTE | 2019-07-01 04:44 | ED Cardiac General ---
History of Present Illness General Chief Complaint: Cardiac/General Problems Stated Complaint: A-FIB Source: patient, RN notes reviewed, old records Exam Limitations: no limitations (CONSTANCE SIMMONS MD) History of Present Illness Date Seen by Provider: Jul 01, 2019 Time Seen by Provider: 04:30 Initial Comments This patient is an 83-year-old female presents to the emergency department complaining of palpitations. Patient has a long history of atrial fibrillation and takes metoprolol for same. Patient states when her atrial fibrillation happens usually happens with she's asleep. Patient's heart rate is 110-120 A. fib rhythm. Patient denies any shortness of breath. This is a chronic condition for this patient. Patient denies chest pain. Timing/Duration: 1 hour Severity: mild Activities at Onset: none Prior CP/Workup: echocardiography Modifying Factors: worse with antacids, worse with breathing, worse with coughing, worse with defecting, worse with eating, worse with exercise, worse with lying down, worse with morphine, worse with movement, worse with nitroglycerin, worse with oxygen, worse with palpation, worse with rest, worse with other Associated Systoms: Denies Symptoms; No Chest Pain, No Cough, No Diaphoresis, No Fever/Chills, No Headaches, No Loss of Appetite, No Malaise, No Nausea/Vomiting, No Rash, No Seizure, No Shortness of Air, No Syncope, No Weakness, No Other (CONSTANCE SIMMONS MD) Allergies and Home Medications Allergies Coded Allergies: Beef Containing Products (Verified Allergy, Unknown, 11/17/18) Iodinated Contrast- Oral and IV Dye (Verified Allergy, Unknown, 11/17/18) Penicillins (Verified Allergy, Unknown, 11/17/18) Pork/Porcine Containing Products (Verified Allergy, Unknown, 11/17/18) Yunjvfp-Jpv-Dke Reductase Inhibitor (Verified Allergy, Unknown, 11/17/18) propoxyphene (Verified Allergy, Unknown, 11/17/18) Home Medications Metoprolol Tartrate 25 Mg Tablet, 25 MG PO BID Prescribed by: CORTNEY ARRIAGA on 03/01/19 0359 Patient Home Medication List Home Medication List Reviewed: Yes (CONSTANCE SIMMONS MD) Review of Systems Review of Systems Constitutional: No no symptoms reported; see HPI; No chills, No diaphoresis, No dizziness, No fever, No malaise, No weakness, No weight gain, No weight loss, No other EENTM: No No Symptoms Reported, No See HPI, No Blurred Vision, No Double Vision, No Eye Pain, No Eye Tearing, No Ear Drainage, No Ear Pain, No Mouth Pain, No Mouth Swelling, No Nose Congestion, No Nose Pain, No Throat Pain, No Throat Swelling, No Other Respiratory: Denies No Symptoms Reported, Denies See HPI, Denies Cough, Denies Orthopnea, Denies Shortness of Air, Denies SOA With Exertion, Denies SOA at Rest, Denies Stridor, Denies Wheezing, Denies Other Cardiovascular: Denies No Symptoms Reported; See HPI; Denies Chest Pain, Denies Edema; Irregular Heart Rate; Denies Lightheadedness; Palpitations; Denies Syncope, Denies Other Gastrointestinal: Denies No Symptoms Reported, Denies See HPI, Denies Abdomen Distended, Denies Abdominal Pain, Denies Blood Streaked Stools, Denies Constipated, Denies Diarrhea, Denies Difficulty Swallowing, Denies Nausea, Denies Poor Appetite, Denies Poor Fluid Intake, Denies Rectal Bleeding, Denies Vomiting, Denies Other Genitourinary: Denies No Symptoms Reported, Denies See HPI, Denies Burning, Denies Discharge, Denies Drainage, Denies Frequency, Denies Flank Pain, Denies Hematuria, Denies Incontinence, Denies Pain, Denies Urgency, Denies Other Musculoskeletal: No no symptoms reported, No see HPI, No back pain, No gout, No joint pain, No joint swelling, No muscle pain, No muscle stiffness, No muscle cramps, No muscle twitching, No muscle weakness, No neck pain, No other Skin: No no symptoms reported, No see HPI, No change in color, No change in hair/nails, No dryness, No hx of skin cancer, No lesions, No lumps, No pruritus, No rash, No other (CONSTANCE SIMMONS MD) All Other Systems Reviewed Negative Unless Noted: Yes (CONSTANCE SIMMONS MD) Past Chulqab-Kpccjr-Apuxzs Hx Patient Social History Recent Foreign Travel: No Contact w/Someone Who Travel: No Recent Hopitalizations: No (CONSTANCE SIMMONS MD) Seasonal Allergies Seasonal Allergies: No (CONSTANCE SIMMONS MD) Past Medical History Surgeries: Yes Breast, Orthopedic, Tonsillectomy Respiratory: No Cardiac: Yes High Cholesterol, Hypertension, Irregular Heartbeat Neurological: No Genitourinary: No Gastrointestinal: No Musculoskeletal: Yes Fractures Endocrine: Yes Hypothyroidsim HEENT: Yes Glaucoma Cancer: Yes Psychosocial: No Integumentary: No Blood Disorders: No (CONSTANCE SIMMONS MD) Family Medical History No Pertinent Family Hx (CONSTANCE SIMMONS MD) Physical Exam Vital Signs Vital Signs - First Documented 07/01/19 04:23 Temp 36.0 Pulse 115 Resp 16 B/P (MAP) 163/107 (125) Pulse Ox 98 O2 Delivery Room Air (JENNIFER HOLT DO) Vital Signs Capillary Refill : (CONSTANCE SIMMONS MD) Height, Weight, BMI Height: 5'4.00" Weight: 163lbs. 0oz. 73.622831bl; 30.00 BMI Method:Stated General Appearance: No Apparent Distress, WD/WN Respiratory: Chest Non Tender, Lungs Clear, Normal Breath Sounds, No Accessory Muscle Use, No Respiratory Distress Cardiovascular: No Edema, No Gallop, No JVD, No Murmur, Normal Peripheral Pul ses, Irregularly Irregular Gastrointestinal: Normal Bowel Sounds, No Organomegaly, No Pulsatile Mass, Non Tender Skin: Normal Color, Warm/Dry (CONSTANCE SIMMONS MD) Progress/Results/Core Measures Results/Orders Lab Results Laboratory Tests Test 07/01/19 04:35 Range/Units White Blood Count 6.6 4.3-11.0 10^3/uL Red Blood Count 5.35 4.35-5.85 10^6/uL Hemoglobin 14.9 11.5-16.0 G/DL Hematocrit 45 35-52 % Mean Corpuscular Volume 85 80-99 FL Mean Corpuscular Hemoglobin 28 25-34 PG Mean Corpuscular Hemoglobin Concent 33 32-36 G/DL Red Cell Distribution Width 13.7 10.0-14.5 % Platelet Count 248 130-400 10^3/uL Mean Platelet Volume 11.3 H 7.4-10.4 FL Neutrophils (%) (Auto) 46 42-75 % Lymphocytes (%) (Auto) 37 12-44 % Monocytes (%) (Auto) 13 H 0-12 % Eosinophils (%) (Auto) 3 0-10 % Basophils (%) (Auto) 1 0-10 % Neutrophils # (Auto) 3.0 1.8-7.8 X 10^3 Lymphocytes # (Auto) 2.4 1.0-4.0 X 10^3 Monocytes # (Auto) 0.9 0.0-1.0 X 10^3 Eosinophils # (Auto) 0.2 0.0-0.3 10^3/uL Basophils # (Auto) 0.1 0.0-0.1 10^3/uL Prothrombin Time 18.1 H 12.2-14.7 SEC INR Comment 1.4 0.8-1.4 Sodium Level 136 135-145 MMOL/L Potassium Level 4.2 3.6-5.0 MMOL/L Chloride Level 99 98-107 MMOL/L Carbon Dioxide Level 23 21-32 MMOL/L Anion Gap 14 5-14 MMOL/L Blood Urea Nitrogen 12 7-18 MG/DL Creatinine 0.88 0.60-1.30 MG/DL Estimat Glomerular Filtration Rate > 60 BUN/Creatinine Ratio 14 Glucose Level 126 H 70-105 MG/DL Calcium Level 9.6 8.5-10.1 MG/DL Corrected Calcium 8.5-10.1 MG/DL Total Bilirubin 0.4 0.1-1.0 MG/DL Aspartate Amino Transf (AST/SGOT) 22 5-34 U/L Alanine Aminotransferase (ALT/SGPT) 16 0-55 U/L Alkaline Phosphatase 89 40-136 U/L Troponin I < 0.30 <0.30 NG/ML Pro-B-Type Natriuretic Peptide 110.0 H <75.0 PG/ML Total Protein 7.6 6.4-8.2 GM/DL Albumin 4.8 H 3.2-4.5 GM/DL (JENNIFER HOLT DO) Medications Given in ED Current Medications Medications Dose Ordered Sig/Jaylan Route Start Time Stop Time Status Last Admin Dose Admin Diltiazem HCl 10 mg ONCE ONCE IVP 07/01/19 04:45 07/01/19 04:46 DC 07/01/19 04:56 10 MG (JENNIFER HOLT DO) Vital Signs/I&O 07/01/19 04:23 Temp 36.0 Pulse 115 Resp 16 B/P (MAP) 163/107 (125) Pulse Ox 98 O2 Delivery Room Air (JENNIFER HOLT DO) Progress Progress Note : Time: 05:11 Progress Note Patient given IV push Cardizem 10 mg with a rate of 124 to 130. Patient had a quick response rate is now 46-50 the blood pressure is 138/64. Patient had a significant response to 10 of Cardizem. However the patient states she is feeling much better and has no complaints at this time. Patient is given a fluid bolus. Continue to monitor the patient. Still awaiting lab values. (CONSTANCE SIMMONS MD) Progress Note : Progress Note @0630 - Patient care taken over from Dr. Simmons at 0600. Pt in NSR. Patient updated on lab results. Her heart rate is in the 40s to 50s which she states is baseline for her and is now in a normal sinus rhythm. She has no complaints and is asking to be discharged home. Workup today fails to reveal any emergent pathology. The patient is stable for discharge home. Advised follow-up with PCP and/or cto. (JENNIFER HOLT DO) Initial ECG Impression Date: Jul 01, 2019 Initial ECG Impression Time: 04:23 Initial ECG Rate: 121 Initial ECG Rhythm: A Fib/Flutter Initial ECG Intervals: Normal Initial ECG Impression: Atrial Fibrillation w/RVR Comment Atrial fibrillation with a heart rate 121 nonspecific EKG changes borderline left axis deviation. Abnormal EKG however it is chronic for this patient. (CONSTANCE SIMMONS MD) Departure Impression Primary Impression: PAROXYSMAL ATRIAL FIBRILLATION Disposition: 01 HOME, SELF-CARE Condition: Stable Departure-Patient Inst. Decision time for Depature: 06:33 (JENNIFER HOLT DO) Referrals: PAUL BILLY MD (PCP/Family) Primary Care Physician Patient Instructions: Atrial Fibrillation (DC) Add. Discharge Instructions: Follow-up with your doctor and/or cto in the next 2-3 days. Return to the Emergency Department immediately for new or worsening symptoms. Continue to take your metoprolol as directed. Avoid caffeine, alcohol, or other stimulants as this could trigger atrial fibrillation. CONSTANCE SIMMONS MD Jul 01, 2019 04:44 JENNIFER HOLT DO Jul 01, 2019 06:34
--- NOTE | 2019-07-01 04:50 | NUR ---
0436 This RN called [facility] for lab with no answer. 0437 This RN called [facility] for lab again with no answer. 0439 This RN called Deven to see if she would be able to come in for lab with no answer. 0440 This RN called [facility] for lab with no answer. 0445 This RN called [facility] for lab with no answer. 0446 This RN called [facility] for lab with no answer. 0446 This RN called Danilo for lab with no answer. 0449 Danilo called back and agreed to come in to run labs.
[2019-07-01 05:54] LABS: BASOPHILS # (AUTO) 0.1 10^3/uL (0.0-0.1); BASOPHILS % (AUTO) 1 % (0-10); EOSINOPHILS # (AUTO) 0.2 10^3/uL (0.0-0.3); EOSINOPHILS % (AUTO) 3 % (0-10); HEMATOCRIT 45 % (35-52); HEMOGLOBIN 14.9 G/DL (11.5-16.0); LYMPHOCYTES # (AUTO) 2.4 X 10^3 (1.0-4.0); LYMPHOCYTES % (AUTO) 37 % (12-44); MEAN CORPUSCULAR HEMOGLOBIN 28 PG (25-34); MEAN CORPUSCULAR HGB CONC 33 G/DL (32-36); MEAN CORPUSCULAR VOLUME 85 FL (80-99); MEAN PLATELET VOLUME 11.3 FL (7.4-10.4); MONOCYTES # (AUTO) 0.9 X 10^3 (0.0-1.0); MONOCYTES % (AUTO) 13 % (0-12); NEUTROPHILS % (AUTO) 46 % (42-75); PLATELET COUNT 248 10^3/uL (130-400); RED CELL DISTRIBUTION WIDTH 13.7 % (10.0-14.5); WHITE BLOOD COUNT 6.6 10^3/uL (4.3-11.0)
[2019-07-01 06:05] LABS: INR 1.4 (0.8-1.4); PROTHROMBIN TIME PATIENT 18.1 SEC (12.2-14.7)
--- NOTE | 2019-07-01 06:16 | Diagnostic Imaging Report ---
EXAMINATION: Chest 1 view HISTORY: Heart palpitations. COMPARISON: 03/01/2019. FINDINGS: Please note evaluation is suboptimal due to overlying material which partially obscures the lung bases. The lung volumes are normal. No focal consolidation is seen. No large pleural effusion or pneumothorax is seen. Stable prominent cardiac silhouette. There is calcified aortic atherosclerotic plaque. No acute osseous abnormality is seen. IMPRESSION: 1. Suboptimal exam due to overlying material which partially obscures the lung bases. Within these limitations, no obvious focal consolidation or mass is seen. No large pleural effusion. 2. Stable cardiomegaly. Dictated by: Dictated on workstation # [id number]
[2019-07-01 06:23] LABS: BUN/CREATININE RATIO 14; CALCIUM 9.6 MG/DL (8.5-10.1); CARBON DIOXIDE 23 MMOL/L (21-32); CHLORIDE 99 MMOL/L (98-107); CREATININE SERUM 0.88 MG/DL (0.60-1.30); GFR ESTIMATED > 60; GLUCOSE 126 MG/DL (70-105); POTASSIUM 4.2 MMOL/L (3.6-5.0); SODIUM 136 MMOL/L (135-145)
[2019-07-01 06:24] LABS: ALANINE AMINOTRANSFERASE 16 U/L (0-55); ALBUMIN 4.8 GM/DL (3.2-4.5); ALKALINE PHOSPHATASE 89 U/L (40-136); BILIRUBIN,TOTAL 0.4 MG/DL (0.1-1.0); TOTAL PROTEIN 7.6 GM/DL (6.4-8.2)
[2019-07-01 06:33] VITALS: BP 155/88
== END 2019-07-01 06:40 | disposition home or self-care (01) ==
LOC: EDUNIT# 04:19 → ER FS 04:22
DX: I48.0 Paroxysmal atrial fibrillation (principal); E78.00 Pure hypercholesterolemia, unspecified; I10 Essential (primary) hypertension; E03.9 Hypothyroidism, unspecified
CPT/HCPCS: 36415; 71045; 80053; 83880; 84484; 85025; 85610

== ENCOUNTER 2019-12-04 09:31 | Emergency (ER) | payer MEDICARE, OTHER ==
[~2019-12-04] VITALS: Ht 162.5 cm; Wt 73.9 kg
[2019-12-04] MEDS ORDERED: LIDOCAINE 1% INJ 20 ML 20 ML VIAL ONE (09:34)
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
[2019-12-04] MEDS ORDERED: LIDOCAINE 1% INJ 20 ML 20 ML VIAL INJ ONE (10:00)
[2019-12-04] MEDS ORDERED: TETANUS & DIPHTHERIA TOX,ADULT 0.5 ML (TENIVAC) IM ONE (10:15)
--- NOTE | 2019-12-04 10:25 | Diagnostic Imaging Report ---
INDICATION: Fall with laceration. EXAMINATION: Three views were obtained. FINDINGS: The alignment of the ankles is normal. The plafond and talar dome are intact. Ankle mortise is symmetric. There is no fracture or dislocation. There are mild degenerative changes. IMPRESSION: Mild degenerative changes, otherwise unremarkable. Dictated by: Dictated on workstation # [id number]
[2019-12-04] MEDS ORDERED: DOXY100T2 PO (11:45)
[2019-12-04 12:05] VITALS: BP 159/58
== END 2019-12-04 11:57 | disposition home or self-care (01) ==
LOC: EDUNIT# 09:31 → ER FS 09:32
DX: S81.811A Laceration without foreign body, right lower leg, initial encounter (principal); S81.812A Laceration without foreign body, left lower leg, initial encounter; S86.011A Strain of right Achilles tendon, initial encounter; I10 Essential (primary) hypertension; Z79.01 Long term (current) use of anticoagulants; Z23 Encounter for immunization; Z91.041 Radiographic dye allergy status; Z88.0 Allergy status to penicillin; Z88.8 Allergy status to other drugs, medicaments and biological substances; W23.1XXA Caught, crushed, jammed, or pinched between stationary objects, initial encounter; Y92.59 Other trade areas as the place of occurrence of the external cause
CPT/HCPCS: 73610; 90714

== ENCOUNTER 2020-02-03 18:05 | Emergency (ER) | payer MEDICARE ==
[~2020-02-03] VITALS: Ht 162.5 cm; Wt 81.6 kg
[~2020-02-03 18:05] MED LIST changes: +DOXY100T2 PO
[2020-02-03 18:28] LABS: BASOPHILS # (AUTO) 0.1 10^3/uL (0.0-0.1); BASOPHILS % (AUTO) 1 % (0-10); EOSINOPHILS # (AUTO) 0.2 10^3/uL (0.0-0.3); EOSINOPHILS % (AUTO) 3 % (0-10); HEMATOCRIT 41 % (35-52); HEMOGLOBIN 13.7 G/DL (11.5-16.0); LYMPHOCYTES # (AUTO) 2.3 X 10^3 (1.0-4.0); LYMPHOCYTES % (AUTO) 34 % (12-44); MEAN CORPUSCULAR HEMOGLOBIN 29 PG (25-34); MEAN CORPUSCULAR HGB CONC 34 G/DL (32-36); MEAN CORPUSCULAR VOLUME 85 FL (80-99); MEAN PLATELET VOLUME 10.3 FL (7.4-10.4); MONOCYTES # (AUTO) 0.8 X 10^3 (0.0-1.0); MONOCYTES % (AUTO) 12 % (0-12); NEUTROPHILS # (AUTO) 3.3 X 10^3 (1.8-7.8); NEUTROPHILS % (AUTO) 49 % (42-75); PLATELET COUNT 246 10^3/uL (130-400); WHITE BLOOD COUNT 6.8 10^3/uL (4.3-11.0)
[2020-02-03] MEDS ORDERED: dilTIAZem DRIP PRE-MIX 125 ML IV SCH (18:30)
--- NOTE | 2020-02-03 18:45 | Diagnostic Imaging Report ---
INDICATION: Shortness of air. TIME OF EXAM: 6:19 PM COMPARISON is made with prior chest from 07/01/2019. FINDINGS: There is a calcified nodule left mid lung consistent with granuloma. No infiltrates are seen. There is no effusion or pneumothorax. The heart size is stable. IMPRESSION: No acute cardiopulmonary process is detected. Dictated by: Dictated on workstation # [id number]
[2020-02-03 18:57] LABS: ALANINE AMINOTRANSFERASE 16 U/L (0-55); ALKALINE PHOSPHATASE 110 U/L (40-136); BILIRUBIN,TOTAL 0.4 MG/DL (0.1-1.0); BUN/CREATININE RATIO 13; CALCIUM 9.3 MG/DL (8.5-10.1); CARBON DIOXIDE 23 MMOL/L (21-32); CHLORIDE 99 MMOL/L (98-107); CREATININE SERUM 0.91 MG/DL (0.60-1.30); GFR ESTIMATED 59; GLUCOSE 192 MG/DL (70-105); POTASSIUM 3.9 MMOL/L (3.6-5.0); SODIUM 136 MMOL/L (135-145)
[2020-02-03 18:58] LABS: ALBUMIN 4.7 GM/DL (3.2-4.5); TOTAL PROTEIN 7.3 GM/DL (6.4-8.2)
--- NOTE | 2020-02-03 19:44 | ED General ---
General Chief Complaint: Cardiac/General Problems Stated Complaint: IRREGULAR HEART RATE Nursing Triage Note: Patient presents to the ED with c/o of heart racing, chest tightness. She reports she has a history of a-fib. She states that she was walking out of the door when she felt her heart begin to beat faster and became a little short of breath. Nursing Sepsis Screen: No Definite Risk History of Present Illness Date Seen by Provider: Feb 03, 2020 Time Seen by Provider: 19:40 Initial Comments Patient is a 84-year-old female with history of paroxysmal atrial fibrillation currently anticoagulated on's also presents with acute onset palpitations starting 90 minutes prior to ED arrival. Patient denies shortness of breath, no chest pain, chest tightness, dizziness or lightheadedness but feels generally weak. States she is previously cardioverted chemically in the emergency department has not required electrical cardioversion. Patient denies missed medications, change of doses her new medications. Denies increased leg pain or swelling. No recent illnesses. No other acute symptoms or complaints. Timing/Duration: 1/2 Hour Severity: Mild Associated Systoms: Denies Symptoms Allergies and Home Medications Allergies Coded Allergies: Beef Containing Products (Verified Allergy, Unknown, 11/17/18) Iodinated Contrast Media (Verified Allergy, Unknown, 11/17/18) Penicillins (Verified Allergy, Unknown, 11/17/18) Pork/Porcine Containing Products (Verified Allergy, Unknown, 11/17/18) Abhcifm-Kyg-Qpj Reductase Inhibitor (Verified Allergy, Unknown, 11/17/18) propoxyphene (Verified Allergy, Unknown, 11/17/18) Home Medications Doxycycline Hyclate 100 Mg Tablet, 100 MG PO BID Prescribed by: WANDA LIPSCOMB on 12/04/19 1145 Metoprolol Tartrate 25 Mg Tablet, 25 MG PO BID Prescribed by: CORTNEY ARRIAGA on 03/01/19 0358 Patient Home Medication List Home Medication List Reviewed: Yes Review of Systems Review of Systems Constitutional: see HPI EENTM: see HPI Respiratory: see HPI Cardiovascular: see HPI Genitourinary: see HPI Musculoskeletal: see HPI Skin: see HPI Psychiatric/Neurological: See HPI Hematologic/Lymphatic: See HPI Immunological/Allergic: see HPI All Other Systems Reviewed Negative Unless Noted: Yes Past Vpcdexc-Plxkre-Dmzanq Hx Past Med/Social Hx: Reviewed Nursing Past Med/Soc Hx Patient Social History Alcohol Use: Denies Use Recreational Drug Use: No Smoking Status: Never a Smoker 2nd Hand Smoke Exposure: No Recent Foreign Travel: No Contact w/Someone Who Travel: No Recent Infectious Disease Expo: No Recent Hopitalizations: No Physical Abuse: No Sexual Abuse: No Mistreated: No Fear: No Seasonal Allergies Seasonal Allergies: No Past Medical History Surgeries: Yes Breast, Orthopedic, Tonsillectomy Respiratory: No Cardiac: Yes High Cholesterol, Hypertension, Irregular Heartbeat Neurological: No Genitourinary: No Gastrointestinal: No Musculoskeletal: Yes (Left Achilles tendon rupture ) Fractures Endocrine: Yes Hypothyroidsim HEENT: Yes Glaucoma Cancer: Yes Psychosocial: No Integumentary: No Blood Disorders: No Family Medical History No Pertinent Family Hx Physical Exam Vital Signs Vital Signs - First Documented 02/03/20 18:13 Temp 35.9 Pulse 147 Resp 16 B/P (MAP) 172/90 (117) Pulse Ox 100 O2 Delivery Room Air Capillary Refill : Less Than 3 Seconds Height, Weight, BMI Height: 5'4.00" Weight: 163lbs. 0oz. 73.933277rp; 30.00 BMI Method:Stated General Appearance: WD/WN Eyes: Bilateral Eye Normal Inspection, Bilateral Eye PERRL, Bilateral Eye EOMI HEENT: PERRL/EOMI, Normal ENT Inspection Neck: Non Tender, Supple Respiratory: Chest Non Tender, Lungs Clear Cardiovascular: Irregularly Irregular, Tachycardia, Other (trace peripheral edema) Gastrointestinal: Soft Neurologic/Psychiatric: Oriented x3 Skin: Normal Color, Warm/Dry Focused Exam Sepsis Stage: Ruled Out Procedures/Interventions Suture Size: 4-0 Progress/Results/Core Measures Suspected Sepsis Recent Fever Within 48 Hours: No Infection Criteria Present: None New/Unexplained Altered Menta: No Sepsis Screen: No Definite Risk SIRS Temperature: Pulse: 147 Respiratory Rate: 16 Laboratory Tests 02/03/20 18:15: White Blood Count 6.8 Blood Pressure 172 /90 Mean: 117 Laboratory Tests 02/03/20 18:15: Creatinine 0.91, Platelet Count 246, Total Bilirubin 0.4 Results/Orders Lab Results Laboratory Tests Test 02/03/20 18:15 Range/Units White Blood Count 6.8 4.3-11.0 10^3/uL Red Blood Count 4.79 4.35-5.85 10^6/uL Hemoglobin 13.7 11.5-16.0 G/DL Hematocrit 41 35-52 % Mean Corpuscular Volume 85 80-99 FL Mean Corpuscular Hemoglobin 29 25-34 PG Mean Corpuscular Hemoglobin Concent 34 32-36 G/DL Red Cell Distribution Width 13.2 10.0-14.5 % Platelet Count 246 130-400 10^3/uL Mean Platelet Volume 10.3 7.4-10.4 FL Immature Granulocyte % (Auto) 0 % Neutrophils (%) (Auto) 49 42-75 % Lymphocytes (%) (Auto) 34 12-44 % Monocytes (%) (Auto) 12 0-12 % Eosinophils (%) (Auto) 3 0-10 % Basophils (%) (Auto) 1 0-10 % Neutrophils # (Auto) 3.3 1.8-7.8 X 10^3 Lymphocytes # (Auto) 2.3 1.0-4.0 X 10^3 Monocytes # (Auto) 0.8 0.0-1.0 X 10^3 Eosinophils # (Auto) 0.2 0.0-0.3 10^3/uL Basophils # (Auto) 0.1 0.0-0.1 10^3/uL Immature Granulocyte # (Auto) 0.0 0.0-0.1 10^3/uL Sodium Level 136 135-145 MMOL/L Potassium Level 3.9 3.6-5.0 MMOL/L Chloride Level 99 98-107 MMOL/L Carbon Dioxide Level 23 21-32 MMOL/L Anion Gap 14 5-14 MMOL/L Blood Urea Nitrogen 12 7-18 MG/DL Creatinine 0.91 0.60-1.30 MG/DL Estimat Glomerular Filtration Rate 59 BUN/Creatinine Ratio 13 Glucose Level 192 H 70-105 MG/DL Calcium Level 9.3 8.5-10.1 MG/DL Corrected Calcium 8.5-10.1 MG/DL Magnesium Level 2.0 1.6-2.4 MG/DL Total Bilirubin 0.4 0.1-1.0 MG/DL Aspartate Amino Transf (AST/SGOT) 22 5-34 U/L Alanine Aminotransferase (ALT/SGPT) 16 0-55 U/L Alkaline Phosphatase 110 40-136 U/L Troponin I < 0.30 <0.30 NG/ML Pro-B-Type Natriuretic Peptide 68.1 <75.0 PG/ML Total Protein 7.3 6.4-8.2 GM/DL Albumin 4.7 H 3.2-4.5 GM/DL My Orders Orders - MANDI STRAUSS DO Cbc With Automated Diff (02/03/20 18:14) Comprehensive Metabolic Panel (02/03/20 18:14) Chest 1 View Ap/Pa Only (02/03/20 18:14) Magnesium (02/03/20 18:14) Troponin I Fs (02/03/20 18:14) Probnp Fs (02/03/20 18:14) Diltiazem Injection (Cardizem Injection) (02/03/20 18:30) Diltiazem Drip Pre-Mix (Cardizem Drip Pr (02/03/20 18:30) Ekg Tracing (02/03/20 19:27) Ekg Tracing (02/03/20 19:35) Medications Given in ED Current Medications Medications Dose Ordered Sig/Jaylan Route Start Time Stop Time Status Last Admin Dose Admin Diltiazem HCl 20 mg ONCE ONCE IVP 02/03/20 18:30 02/03/20 18:31 DC 02/03/20 18:33 20 MG Vital Signs/I&O 02/03/20 18:13 Temp 35.9 Pulse 147 Resp 16 B/P (MAP) 172/90 (117) Pulse Ox 100 O2 Delivery Room Air Capillary Refill : Less Than 3 Seconds Blood Pressure Mean: 117 Departure Communication (Admissions) Initial EKG, lab and imaging studies reviewed. Patient A. fib with RVR. And successfully converted with Cardizem bolus and drip. Sinus rhythm on repeat EKG is noted. Patient resting comfortably. We'll discharge home with instructions to follow-up with settlement clerk as scheduled. Return precautions reviewed. Impression Primary Impression: Atrial fibrillation Disposition: 01 HOME, SELF-CARE Condition: Stable Departure-Patient Inst. Referrals: PAUL BILLY MD (PCP/Family) Primary Care Physician Patient Instructions: Atrial Fibrillation (DC) Add. Discharge Instructions: Please resume all home medications upon returning home this evening. Follow-up with her settlement clerk as scheduled. Return to ED if new or concerning symptoms. All discharge instructions reviewed with patient and/or family. Voiced understanding. MANDI STRAUSS DO Feb 03, 2020 19:44
[2020-02-03 19:50] VITALS: BP 177/66
== END 2020-02-03 19:50 | disposition home or self-care (01) ==
LOC: EDUNIT# 18:05 → ER FS 18:06
DX: I48.91 Unspecified atrial fibrillation (principal); I10 Essential (primary) hypertension; Z91.041 Radiographic dye allergy status; Z88.0 Allergy status to penicillin; Z88.8 Allergy status to other drugs, medicaments and biological substances
CPT/HCPCS: 36415; 71045; 80053; 83735; 83880; 84484; 85025

== ENCOUNTER 2020-03-11 17:50 | Emergency (ER) | payer MEDICARE ==
[~2020-03-11] VITALS: Ht 162.5 cm; Wt 81.6 kg
[2020-03-11 18:20] LABS: BACTERIA,URINE NEGATIVE /HPF; BILIRUBIN,URINE NEGATIVE (NEGATIVE); CLARITY,URINE CLEAR; COLOR,URINE YELLOW; GLUCOSE, URINE (UA) NEGATIVE (NEGATIVE); KETONES,URINE NEGATIVE (NEGATIVE); LEUKOCYTE ESTERASE ,URINE NEGATIVE (NEGATIVE); NITRITE,URINE NEGATIVE (NEGATIVE); PROTEIN,URINE TRACE (NEGATIVE)
--- NOTE | 2020-03-11 18:22 | ED GU-Female ---
General Chief Complaint: - Urinary Stated Complaint: UTI SYMPTOMS,HIGH BLOOD PRESSURE Nursing Triage Note: Patient presents to the ED with c/o of urinary urgency and frequency. She states she thinks she has a urinary tract infection. She reports her symptoms began around 0300 this morning. Denies any nausea, vomiting, fever, or pain. Nursing Sepsis Screen: No Definite Risk Source: patient Exam Limitations: no limitations History of Present Illness Date Seen by Provider: Mar 11, 2020 Time Seen by Provider: 18:10 Initial Comments 84 no female presents with increased urinary frequency with onset today. States she's been having the urge to urinate about every 45 minutes, without any pain or discomfort or difficulty urinating. Denies any blood in her urine, back or kidney pain. Denies any abdominal or pelvic pain. Denies any fever or chills, nausea or vomiting. Patient has had infrequent history of UTIs, stating only 2- 3 in her lifetime. Denies any change to her diet or change to her medication. Allergies and Home Medications Allergies Coded Allergies: Beef Containing Products (Verified Allergy, Unknown, 11/17/18) Iodinated Contrast Media (Verified Allergy, Unknown, 11/17/18) Penicillins (Verified Allergy, Unknown, 11/17/18) Pork/Porcine Containing Products (Verified Allergy, Unknown, 11/17/18) Xufihxj-Rsn-Zrf Reductase Inhibitor (Verified Allergy, Unknown, 11/17/18) propoxyphene (Verified Allergy, Unknown, 11/17/18) Home Medications Doxycycline Hyclate 100 Mg Tablet, 100 MG PO BID Prescribed by: WANDA LIPSCOMB on 12/04/19 1145 Metoprolol Tartrate 25 Mg Tablet, 25 MG PO BID Prescribed by: CORTNEY ARRIAGA on 03/01/19 0358 Phenazopyridine HCl 200 Mg Tablet, 1 TAB PO BID Prescribed by: CORTNEY ARRIAGA on 03/11/20 7296 Patient Home Medication List Home Medication List Reviewed: Yes Review of Systems Review of Systems Constitutional: see HPI; No chills, No fever, No malaise, No weakness Respiratory: No cough, No short of breath Cardiovascular: No chest pain, No edema, No palpitations, No syncope Gastrointestinal: No abdominal pain, No constipation, No diarrhea, No loss of appetite, No nausea, No vomiting Genitourinary: see HPI; denies burning, denies discharge, denies dysuria; frequency; denies flank pain, denies hematuria, denies incontinence, denies pain; urgency Musculoskeletal: No back pain, No joint pain Skin: No change in color, No rash Past Abgfvhp-Yqjeby-Rspmpu Hx Past Med/Social Hx: Reviewed Nursing Past Med/Soc Hx Patient Social History Alcohol Use: Denies Use Recreational Drug Use: No Smoking Status: Never a Smoker 2nd Hand Smoke Exposure: No Recent Foreign Travel: No Contact w/Someone Who Travel: No Recent Infectious Disease Expo: No Recent Hopitalizations: No Physical Abuse: No Sexual Abuse: No Mistreated: No Fear: No Seasonal Allergies Seasonal Allergies: No Past Medical History Surgeries: Yes Breast, Orthopedic, Tonsillectomy Respiratory: No Cardiac: Yes High Cholesterol, Hypertension, Irregular Heartbeat Neurological: No Genitourinary: No Gastrointestinal: No Musculoskeletal: Yes (Left Achilles tendon rupture ) Fractures Endocrine: Yes Hypothyroidsim HEENT: Yes Glaucoma Cancer: Yes Psychosocial: No Integumentary: No Blood Disorders: No Family Medical History No Pertinent Family Hx Physical Exam Vital Signs Vital Signs - First Documented 03/11/20 17:52 Temp 36.8 Pulse 92 Resp 16 B/P (MAP) 192/72 (112) Pulse Ox 98 O2 Delivery Room Air Capillary Refill : Less Than 3 Seconds Height, Weight, BMI Height: 5'4.00" Weight: 163lbs. 0oz. 73.481968mj; 30.00 BMI Method:Stated General Appearance: WD/WN, no apparent distress Cardiovascular: regular rate, rhythm, no edema, no JVD Respiratory: chest non-tender, lungs clear, normal breath sounds Gastrointestinal: non tender, soft; No distended, No guarding, No rebound, No tenderness Back: normal inspection, no CVA tenderness Neurologic/Psychiatric: alert, normal mood/affect Procedures/Interventions Suture Size: 4-0 Progress/Results/Core Measures Suspected Sepsis Recent Fever Within 48 Hours: No Infection Criteria Present: Suspected New Infection New/Unexplained Altered Menta: No Sepsis Screen: No Definite Risk SIRS Temperature: Pulse: 92 Respiratory Rate: 16 Blood Pressure 192 /72 Mean: 112 Results/Orders Lab Results Laboratory Tests Test 03/11/20 18:08 Range/Units Urine Color YELLOW Urine Clarity CLEAR Urine pH 6.0 5-9 Urine Specific [place] 1.010 L 1.016-1.022 Urine Protein TRACE H NEGATIVE Urine Glucose (UA) NEGATIVE NEGATIVE Urine Ketones NEGATIVE NEGATIVE Urine Nitrite NEGATIVE NEGATIVE Urine Bilirubin NEGATIVE NEGATIVE Urine Urobilinogen 0.2 < = 1.0 MG/DL Urine Leukocyte Esterase NEGATIVE NEGATIVE Urine RBC (Auto) NEGATIVE NEGATIVE Urine RBC NONE /HPF Urine WBC 2-5 /HPF Urine Squamous Epithelial Cells 5-10 /HPF Urine Crystals NONE /LPF Urine Bacteria NEGATIVE /HPF Urine Casts PRESENT /LPF Urine Hyaline Casts 10-25 H /LPF Urine Mucus SMALL H /LPF Urine Culture Indicated NO My Orders Orders - ROVENSTINEMIKECORTNEY L DO Ua Culture If Indicated (03/11/20 17:58) Phenazopyridine Tablet (Pyridium Tablet) (03/11/20 18:30) Medications Given in ED Current Medications Medications Dose Ordered Sig/Jaylan Route Start Time Stop Time Status Last Admin Dose Admin Phenazopyridine HCl 100 mg ONCE ONCE PO 03/11/20 18:30 03/11/20 18:31 DC 03/11/20 18:30 100 MG Vital Signs/I&O 03/11/20 17:52 Temp 36.8 Pulse 92 Resp 16 B/P (MAP) 192/72 (112) Pulse Ox 98 O2 Delivery Room Air Capillary Refill : Less Than 3 Seconds Blood Pressure Mean: 112 Progress Note : Progress Note No evidence of UTI, urine actually quite dilute. Patient denies any change of her water intake today. Given a Pyridium here in the ER and a prescription for a couple days. Advised to follow-up with her PCP in one week if not improving, ER sooner if worse. Told to take her evening meds as she gets home. Patient agrees Departure Impression Primary Impression: Dysuria Disposition: 01 HOME, SELF-CARE Condition: Stable Departure-Patient Inst. Decision time for Depature: 18:27 Referrals: ETHAN RACHEL APRN (PCP/Family) Primary Care Physician Patient Instructions: Dysuria, Adult (DC) Add. Discharge Instructions: Take your evening medications at 8pm as is per your routine. See your PCP in 5 to 7 days for re-evaluation, ER sooner if worse. All discharge instructions reviewed with patient and/or family. Voiced understanding. Scripts Phenazopyridine HCl (Pyridium) 200 Mg Tablet 1 TAB PO BID, #6 TAB Prov: CORTNEY ARRIAGA DO 03/11/20 CORTNEY ARRIAGA DO Mar 11, 2020 18:22
[2020-03-11] MEDS ORDERED: PHEN-640 PO (18:29)
[2020-03-11] MEDS ORDERED: PHENAZOPYRIDINE 100 MG (PYRIDIUM) TABLET PO ONE (18:30)
[2020-03-11 18:39] VITALS: BP 196/67
== END 2020-03-11 18:38 | disposition home or self-care (01) ==
LOC: EDUNIT# 17:50 → ER FS 17:51
DX: R30.0 Dysuria (principal); I10 Essential (primary) hypertension; N39.0 Urinary tract infection, site not specified; Z91.041 Radiographic dye allergy status; Z88.0 Allergy status to penicillin; Z88.8 Allergy status to other drugs, medicaments and biological substances
CPT/HCPCS: 81000; 99283

== ENCOUNTER 2020-11-19 07:23 | Emergency (ER) | payer MEDICARE ==
[~2020-11-19] VITALS: Ht 162.6 cm; Wt 72.1 kg
[~2020-11-19 07:23] MED LIST changes: +PHEN-640 PO
[2020-11-19] MEDS ORDERED: fentaNYL INJ 100 MCG/2 ML AMP IVP ONE (08:00)
[2020-11-19] MEDS ORDERED: ANTACID SUSP 30 ML UDC (MYLANTA) PO ONE (08:00)
[2020-11-19] MEDS ORDERED: lisINopril 10 MG (PRINIVIL) TABLET PO ONE (08:00)
[2020-11-19 08:04] LABS: HEMATOCRIT 42 % (35-52); HEMOGLOBIN 13.9 g/dL (11.5-16.0); MEAN CORPUSCULAR HEMOGLOBIN 27 pg (25-34); MEAN CORPUSCULAR HGB CONC 33 g/dL (32-36); MEAN CORPUSCULAR VOLUME 82 fL (80-99); WHITE BLOOD COUNT 5.9 10^3/uL (4.3-11.0)
[2020-11-19 08:05] LABS: BASOPHILS % (AUTO) 1 % (0-10); EOSINOPHILS % (AUTO) 2 % (0-10); LYMPHOCYTES % (AUTO) 38 % (12-44); MEAN PLATELET VOLUME 10.4 fL (9.0-12.2); MONOCYTES % (AUTO) 16 % (0-12); NEUTROPHILS % (AUTO) 43 % (42-75); PLATELET COUNT 270 10^3/uL (130-400)
[2020-11-19 08:06] LABS: BASOPHILS # (AUTO) 0.1 10^3/uL (0.0-0.1); EOSINOPHILS # (AUTO) 0.1 10^3/uL (0.0-0.3); LYMPHOCYTES # (AUTO) 2.3 X 10^3 (1.0-4.0); MONOCYTES # (AUTO) 0.9 X 10^3 (0.0-1.0); NEUTROPHILS # (AUTO) 2.5 X 10^3 (1.8-7.8)
--- NOTE | 2020-11-19 08:07 | ED Abdominal Pain ---
General Chief Complaint: Abdominal/GI Problems Stated Complaint: ABD PAIN Nursing Triage Note: Patient reports she has had upper midline abdominal pain since Sunday, states the pain has been intermittent all week and worsened dramatically last night. She also reports the pain now starts in her left upper/mid back and radiates to her stomach. She denies any nausea/vomiting/diarrhea, states her bowel movements have been regular. History of Present Illness Date Seen by Provider: Nov 19, 2020 Time Seen by Provider: 07:35 Initial Comments 85-year-old female with past medical history of paroxysmal atrial fibrillation on Xarelto, hyperlipidemia, hypertension, thyroid disease coming in due to severe intermittent stabbing pain in her back that radiates through to her abdomen. She says it is close to the middle of her back. Is been going on since last Sunday. It kept her up all night last night and that is why she presented to the emergency department today. She states she has had broken bones in her back and that is always a cause for pain in her back and this is very similar. However, it is unusual that it is radiating to her abdomen now. The pain is better when she lays on her left side she said. Worse when she is laying on her back as she says the bed puts pressure on her spine. She has not taken anything for the pain. Her son states he recognizes sometimes it is associated when she eats fatty foods, but she says she has not had any in the past day. Denies any associated fever, cough, shortness of breath, chest pain, nausea, vomiting, weakness, numbness, dysuria, diarrhea, rash, or any other concerning symptoms. Allergies and Home Medications Allergies Coded Allergies: Beef Containing Products (Verified Allergy, Unknown, 11/17/18) Iodinated Contrast Media (Verified Allergy, Unknown, 11/17/18) Penicillins (Verified Allergy, Unknown, 11/17/18) Pork/Porcine Containing Products (Verified Allergy, Unknown, 11/17/18) Hvdppwk-Beu-Yzr Reductase Inhibitor (Verified Allergy, Unknown, 11/17/18) propoxyphene (Verified Allergy, Unknown, 11/17/18) Patient Home Medication List Home Medication List Reviewed: Yes Doxycycline Hyclate (Doxycycline Hyclate) 100 Mg Tablet, 100 MG PO BID Prescribed by: WANDA LIPSCOMB on 12/04/19 4742 Metoprolol Tartrate (Metoprolol Tartrate) 25 Mg Tablet, 25 MG PO BID Prescribed by: CORTNEY ARRIAGA on 03/01/19 0358 Phenazopyridine HCl (Pyridium) 200 Mg Tablet, 1 TAB PO BID Prescribed by: CORTNEY ARRIAGA on 03/11/20 1829 Review of Systems Review of Systems Constitutional: No chills EENTM: No Blurred Vision Respiratory: Denies Cough, Denies Shortness of Air Cardiovascular: Denies Chest Pain, Denies Lightheadedness Gastrointestinal: Abdominal Pain; Denies Constipated, Denies Diarrhea, Denies Nausea, Denies Vomiting Genitourinary: Denies Burning, Denies Frequency Musculoskeletal: back pain; No joint swelling, No neck pain Skin: No rash Psychiatric/Neurological: Denies Anxiety, Denies Depressed Endocrine: No Symptoms Reported Hematologic/Lymphatic: No Symptoms Reported All Other Systems Reviewed Negative Unless Noted: Yes Past Loxcreq-Ytktvf-[place] Hx Patient Social History Tobacco Use?: No Substance use?: No Alcohol Use?: No Pt feels they are or have been: No Seasonal Allergies Seasonal Allergies: No Past Medical History Surgery/Hospitalization HX: Hx htn, a-fib, high cholesterol, bilateral mastectomy Surgeries: Yes Breast, Orthopedic, Tonsillectomy Respiratory: No Cardiac: Yes High Cholesterol, Hypertension, Irregular Heartbeat Neurological: No Genitourinary: No Gastrointestinal: No Musculoskeletal: Yes (Left Achilles tendon rupture ) Fractures Endocrine: Yes Hypothyroidsim HEENT: Yes Glaucoma Cancer: Yes Psychosocial: No Integumentary: No Blood Disorders: No Family Medical History No Pertinent Family Hx Physical Exam Vital Signs Vital Signs - First Documented 11/19/20 07:38 Temp 36.6 Pulse 69 Resp 18 B/P (MAP) 208/73 (118) Pulse Ox 96 O2 Delivery Room Air Capillary Refill : Less Than 3 Seconds Height/Weight/BMI Height: 5'4.00" Weight: 163lbs. 0oz. [id number]; 27.00 BMI Method:Stated General Appearance: WD/WN, no apparent distress HEENT: PERRL/EOMI, normal ENT inspection, pharynx normal Neck: non-tender, full range of motion, supple, normal inspection Respiratory: chest non-tender, lungs clear, normal breath sounds, no respiratory distress, no accessory muscle use Cardiovascular: regular rate, rhythm, no edema, no JVD, systolic murmur (patient says has always been there) Gastrointestinal: normal bowel sounds, non tender, soft, no pulsatile mass; No distended, No guarding, No rebound Extremities: normal range of motion, non-tender, normal inspection, no pedal edema, no calf tenderness, normal capillary refill Back: normal inspection, no CVA tenderness, vertebral tenderness (paraspinal tenderness around T7-T10 that recreates her pain) Neurologic/Psychiatric: 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, no motor/sensory deficits, alert, normal mood/affect, oriented x 3; No motor weakness, No sensory deficit Skin: normal color, warm/dry Lymphatic: no adenopathy Procedures/Interventions Suture Size: 4-0 Progress/Results/Core Measures Results/Orders Lab Results Laboratory Tests Test 11/19/20 07:39 11/19/20 11:00 11/19/20 13:01 Range/Units White Blood Count 5.9 4.3-11.0 10^3/uL Red Blood Count 5.15 H 3.80-5.11 10^6/uL Hemoglobin 13.9 11.5-16.0 g/dL Hematocrit 42 35-52 % Mean Corpuscular Volume 82 80-99 fL Mean Corpuscular Hemoglobin 27 25-34 pg Mean Corpuscular Hemoglobin Concent 33 32-36 g/dL Red Cell Distribution Width 13.6 10.0-14.5 % Platelet Count 270 130-400 10^3/uL Mean Platelet Volume 10.4 9.0-12.2 fL Immature Granulocyte % (Auto) 0 % Neutrophils (%) (Auto) 43 42-75 % Lymphocytes (%) (Auto) 38 12-44 % Monocytes (%) (Auto) 16 H 0-12 % Eosinophils (%) (Auto) 2 0-10 % Basophils (%) (Auto) 1 0-10 % Neutrophils # (Auto) 2.5 1.8-7.8 X 10^3 Lymphocytes # (Auto) 2.3 1.0-4.0 X 10^3 Monocytes # (Auto) 0.9 0.0-1.0 X 10^3 Eosinophils # (Auto) 0.1 0.0-0.3 10^3/uL Basophils # (Auto) 0.1 0.0-0.1 10^3/uL Immature Granulocyte # (Auto) 0.0 0.0-0.1 10^3/uL Prothrombin Time 18.5 H 12.2-14.7 SEC INR Comment 1.5 H 0.8-1.4 Activated Partial Thromboplast Time 43 H 24-35 SEC Sodium Level 131 L 135-145 MMOL/L Potassium Level 4.1 3.6-5.0 MMOL/L Chloride Level 96 L 98-107 MMOL/L Carbon Dioxide Level 23 21-32 MMOL/L Anion Gap 12 5-14 MMOL/L Blood Urea Nitrogen 8 7-18 MG/DL Creatinine 0.89 0.60-1.30 MG/DL Estimat Glomerular Filtration Rate 60 BUN/Creatinine Ratio 9 Glucose Level 109 H 70-105 MG/DL Calcium Level 9.3 8.5-10.1 MG/DL Corrected Calcium 8.5-10.1 MG/DL Total Bilirubin 0.5 0.1-1.0 MG/DL Aspartate Amino Transf (AST/SGOT) 23 5-34 U/L Alanine Aminotransferase (ALT/SGPT) 14 0-55 U/L Alkaline Phosphatase 86 40-136 U/L Troponin I < 0.30 <0.30 NG/ML Total Protein 7.5 6.4-8.2 GM/DL Albumin 4.6 H 3.2-4.5 GM/DL Lipase 57 8-78 U/L Urine Color YELLOW Urine Clarity CLEAR Urine pH 7.0 5-9 Urine Specific [place] 1.015 L 1.016-1.022 Urine Protein NEGATIVE NEGATIVE Urine Glucose (UA) NEGATIVE NEGATIVE Urine Ketones NEGATIVE NEGATIVE Urine Nitrite NEGATIVE NEGATIVE Urine Bilirubin NEGATIVE NEGATIVE Urine Urobilinogen 0.2 < = 1.0 MG/DL Urine Leukocyte Esterase NEGATIVE NEGATIVE Urine RBC (Auto) NEGATIVE NEGATIVE Urine RBC NONE /HPF Urine WBC NONE /HPF Urine Squamous Epithelial Cells RARE /HPF Urine Crystals NONE /LPF Urine Bacteria NEGATIVE /HPF Urine Casts NONE /LPF Urine Mucus NEGATIVE /LPF Urine Culture Indicated NO Glucometer 138 H 70-110 MG/DL My Orders Orders - RENAE SILVA MD Antacid Suspension (Mylanta Suspension (11/19/20 08:00) Ed Iv/Invasive Line Start (11/19/20 07:51) Cbc With Automated Diff (11/19/20 07:51) Ekg Tracing (11/19/20 07:51) Comprehensive Metabolic Panel (11/19/20 07:51) Protime With Inr (11/19/20 07:51) Partial Thromboplastin Time (11/19/20 07:51) O2 (11/19/20 07:51) Monitor-Rhythm Ecg Trace Only (11/19/20 07:51) Lipase (11/19/20 07:51) Troponin I Fs (11/19/20 07:51) Fentanyl Inj (Sublimaze Injection) (11/19/20 08:00) Lisinopril Tablet (Zestril Tablet) (11/19/20 08:00) Hydrocortisone Injection (Solu-Cortef In (11/19/20 08:31) Hydrocortisone Injection (Solu-Cortef In (11/19/20 12:31) Diphenhydramine Injection (Benadryl Inje (11/19/20 12:31) Diphenhydramine Injection (Benadryl Inje (11/19/20 13:00) Iohexol Injection (Omnipaque 350 Mg/Ml 1 (11/19/20 14:30) Received Contrast (Hold Metformin- Contr (11/19/20 14:30) Sodium Chloride Flush (Catheter Flush Sy (11/19/20 14:30) Ns (Ivpb) (Sodium Chloride 0.9% Ivpb Bag (11/19/20 14:30) Ct Angio Chest/Abd W & W/O (11/19/20 14:31) Ua Culture If Indicated (11/19/20 14:52) Medications Given in ED Current Medications Medications Dose Ordered Sig/Jaylan Route Start Time Stop Time Status Last Admin Dose Admin Al Hydrox/Mg Hydrox/Simethicone 30 ml ONCE ONCE PO 11/19/20 08:00 11/19/20 08:01 DC 11/19/20 08:05 30 ML Diphenhydramine HCl 50 mg ONCE ONCE IVP 11/19/20 13:00 11/19/20 13:01 DC 11/19/20 12:43 50 MG Fentanyl Citrate 50 mcg ONCE ONCE IVP 11/19/20 08:00 11/19/20 08:01 DC 11/19/20 08:05 50 MCG Hydrocortisone Sodium Succinate 200 mg ONCE ONCE IV 11/19/20 12:31 11/19/20 12:32 DC 11/19/20 12:43 200 MG Iohexol 100 ml ONCE ONCE IV 11/19/20 14:30 11/19/20 15:19 DC 11/19/20 14:52 100 ML Lisinopril 40 mg ONCE ONCE PO 11/19/20 08:00 11/19/20 08:01 DC 11/19/20 08:05 40 MG Sodium Chloride 10 ml NEEDED PRN IV 11/19/20 14:30 11/19/20 14:52 10 ML Sodium Chloride 100 ml ONCE ONCE IV 11/19/20 14:30 11/19/20 15:19 DC 11/19/20 14:52 100 ML Vital Signs/I&O 11/19/20 07:38 Temp 36.6 Pulse 69 Resp 18 B/P (MAP) 208/73 (118) Pulse Ox 96 O2 Delivery Room Air Blood Pressure Mean: 118 Progress Progress Note : Progress Note 85-year-old female with above history coming in due to mid upper back pain radiating through to her upper abdomen. ABCs were intact and vitals were stable on presentation although she is hypertensive. She states she is typically very hypertensive before she takes her medications. I gave her the equivalent dose of her Ramipril as lisinopril given that is what we have on formulary. Heart rate is sinus in the 60s. She appears comfortable at this time and is not in any distress. Rating her pain at 4 out of 10. IV was placed and she was given fentanyl for her pain as well as Mylanta to see if that would help given the story of fatty food seems to make it worse. The reassuring aspects of her pain are its reproducible on exam and her back, and she states that is where she previously fractured her back. She denies any new falls. Denies any neurological symptoms such as weakness, numbness, bowel, or bladder issues. Given the intermittent nature of it over the past week, less likely that this is an aortic dissection versus aneurysmal bleeding. However, given her age being a risk factor, this cannot be completely ruled out. Her mother also apparently from a thoracic aortic aneurysm. She has a moderate contrast allergy with hives. Reviewed the [employer] 2020 protocol for accelerated premedication to get contrast and discussed with the radiologist territory sales professional. She will receive Solucortef 200mg now and then in 4 hours with IV benadryl 50mg. She will then get the CTA chest completed at the 5th hour. Clinically, she is not having any neurologic symptoms that would be associated with the dissection or any hemodynamic instability. I believe appropriate to hold off on IV Esmolol for now given HR is in the 50's to 60's already. EKG sinus rhythm with a rate of 59, narrow QRS, without any significant acute ST changes. Labs otherwise reassuring with no findings that would be consistent with what is causing her pain. CT imaging negative for dissection or aneurysm. No acute fracture in the spine as well. Pain otherwise has improved. I believe she is stable for discharge with outpatient follow-up. She was sent home with strict return precautions. Initial ECG Impression Date: Nov 19, 2020 Initial ECG Impression Time: 07:52 Initial ECG Rate: 59 Initial ECG Rhythm: Normal Sinus Comment Normal sinus rhythm, narrow QRS, borderline normal axis versus just barely left axis deviation, T wave inversion in lead III, no significant ST changes, there were numerous EKGs to compare to in January 2020, and there are no significant changes to this EKG today Diagnostic Imaging Diagonstic Imaging: CT Plain Films/CT/US/NM/MRI: chest, abdomen, pelvis Comments [facility]. [place], [place] NAME: ZAKIYA HOLDEN Lexi [facility] REC#: [id number] PT STATUS: REG ER : 1935 PHYSICIAN: RENAE SILVA MD ADMIT DATE: 11/19/20/ER FS Draft Date of Exam:11/19/20 CT ANGIO CHEST/ABD W & W/O HISTORY: Abdominal pain. Aortic dissection COMPARISON: None TECHNIQUE: Axial CT of the chest and abdomen was performed before and after intravenous administration which was timed for the evaluation of the aorta, with sagittal and coronal MIP reformats. All CT scans use one or more of the following dose optimizing techniques: automated exposure control, MA and/or KvP adjustment based on patient size and exam type or iterative reconstruction. FINDINGS: There is mild atherosclerosis in the aorta. The branch vessels of the aortic arch are unremarkable. The celiac trunk, SMA, [place], and bilateral renal arteries are patent. Imaged portions of the iliac arteries are unremarkable. The heart is upper normal in size. There is no pericardial effusion. No mediastinal adenopathy is seen. There is no axillary adenopathy. There is no pleural effusion or pneumothorax. There is no airspace consolidation. There is a calcified granuloma in the left lung. The liver demonstrates no focal lesions. Calcified stones are seen in the gallbladder. The spleen appears normal. The pancreas is normal. The left adrenal gland nodule measures 1.2 cm in diameter with a precontrast density 5 Hounsfield units, consistent with an adenoma. The kidneys are normal. Imaged bowel loops are nondistended without obstruction. No free fluid or free air is seen. No adenopathy is seen. There is a small hiatal hernia. No acute osseous abnormality is seen. There are degenerative changes throughout the spine. IMPRESSION: 1. Mild atherosclerosis in the aorta without evidence of aneurysm or dissection. 2. Cholelithiasis. 3. Small hiatal hernia. Dictated on workstation # [id number] Dict: 11/19/20 1523 Trans: 11/19/20 1535 [facility] [id number] Interpreted by: TOSIN BANEGAS MD Electronically signed by: Departure Impression Primary Impression: Back pain Qualified Codes: M54.6 - Pain in thoracic spine Additional Impressions: Epigastric pain Hypertension Qualified Codes: I10 - Essential (primary) hypertension Disposition: 01 HOME, SELF-CARE Condition: Stable Departure-Patient Inst. Decision time for Depature: 15:44 Referrals: ALLIE ZHANG APRN (PCP) Primary Care Physician [facility] (Family) Primary Care Physician Patient Instructions: Urinary Tract Infection, Adult (DC), Upper Back Pain (DC), Abdominal Pain, Adult ED Add. Discharge Instructions: You were seen in the emergency department from pain in your back that radiated to your stomach. Your labs and imaging did not show anything that would point to the cause of your pain. If you begin having any fever, worsening of pain, vomiting that you cannot control, or any other concerns then please come back to the emergency department. All discharge instructions reviewed with patient and/or family. Voiced understanding. RENAE SILVA MD Nov 19, 2020 08:07
[2020-11-19 08:22] LABS: INR 1.5 (0.8-1.4); PROTHROMBIN TIME PATIENT 18.5 SEC (12.2-14.7)
[2020-11-19 08:28] LABS: CHLORIDE 96 MMOL/L (98-107); POTASSIUM 4.1 MMOL/L (3.6-5.0); SODIUM 131 MMOL/L (135-145)
[2020-11-19 08:29] LABS: ALANINE AMINOTRANSFERASE 14 U/L (0-55); ALBUMIN 4.6 GM/DL (3.2-4.5); ALKALINE PHOSPHATASE 86 U/L (40-136); BILIRUBIN,TOTAL 0.5 MG/DL (0.1-1.0); BUN/CREATININE RATIO 9; CALCIUM 9.3 MG/DL (8.5-10.1); CARBON DIOXIDE 23 MMOL/L (21-32); CREATININE SERUM 0.89 MG/DL (0.60-1.30); GFR ESTIMATED 60; GLUCOSE 109 MG/DL (70-105); LIPASE 57 U/L (8-78); TOTAL PROTEIN 7.5 GM/DL (6.4-8.2)
[2020-11-19] MEDS ORDERED: HYDROCORTISONE 100 MG/2 ML (Solu-CORTEF) VIAL IV STA (08:31)
[2020-11-19] MEDS ORDERED: HYDROCORTISONE 100 MG/2 ML (Solu-CORTEF) VIAL IV ONE (12:31)
[2020-11-19] MEDS ORDERED: diphenhydrAMINE 50 MG/ML INJ (BENADRYL) IM ONE (12:31)
[2020-11-19] MEDS ORDERED: diphenhydrAMINE 50 MG/ML INJ (BENADRYL) IVP ONE (13:00)
[2020-11-19] MEDS ORDERED: HOLD METFORMIN - RECEIVED CONTRAST 20 ML VIAL IV SCH (14:30)
[2020-11-19] MEDS ORDERED: NS 100 ML (IVPB) BAG IV ONE (14:30)
[2020-11-19] MEDS ORDERED: CATHETER FLUSH 10 ML SYR IV PRN (14:30)
[2020-11-19] MEDS ORDERED: IOHEXOL 350 MG/ML 100 ML (OMNIPAQUE 350) VIAL IV ONE (14:30)
[2020-11-19 15:11] LABS: BACTERIA,URINE NEGATIVE /HPF; BILIRUBIN,URINE NEGATIVE (NEGATIVE); CLARITY,URINE CLEAR; COLOR,URINE YELLOW; GLUCOSE, URINE (UA) NEGATIVE (NEGATIVE); KETONES,URINE NEGATIVE (NEGATIVE); LEUKOCYTE ESTERASE ,URINE NEGATIVE (NEGATIVE); NITRITE,URINE NEGATIVE (NEGATIVE); PROTEIN,URINE NEGATIVE (NEGATIVE); SQUAMOUS EPITHELIAL CELL,UR RARE /HPF
--- NOTE | 2020-11-19 15:36 | Diagnostic Imaging Report ---
HISTORY: Abdominal pain. Aortic dissection COMPARISON: None TECHNIQUE: Axial CT of the chest and abdomen was performed before and after intravenous administration which was timed for the evaluation of the aorta, with sagittal and coronal MIP reformats. All CT scans use one or more of the following dose optimizing techniques: automated exposure control, MA and/or KvP adjustment based on patient size and exam type or iterative reconstruction. FINDINGS: There is mild atherosclerosis in the aorta. The branch vessels of the aortic arch are unremarkable. The celiac trunk, SMA, [place], and bilateral renal arteries are patent. Imaged portions of the iliac arteries are unremarkable. The heart is upper normal in size. There is no pericardial effusion. No mediastinal adenopathy is seen. There is no axillary adenopathy. There is no pleural effusion or pneumothorax. There is no airspace consolidation. There is a calcified granuloma in the left lung. The liver demonstrates no focal lesions. Calcified stones are seen in the gallbladder. The spleen appears normal. The pancreas is normal. The left adrenal gland nodule measures 1.2 cm in diameter with a precontrast density 5 Hounsfield units, consistent with an adenoma. The kidneys are normal. Imaged bowel loops are nondistended without obstruction. No free fluid or free air is seen. No adenopathy is seen. There is a small hiatal hernia. No acute osseous abnormality is seen. There are degenerative changes throughout the spine. IMPRESSION: 1. Mild atherosclerosis in the aorta without evidence of aneurysm or dissection. 2. Cholelithiasis. 3. Small hiatal hernia. Dictated by: Dictated on workstation # [id number]
[2020-11-19 16:15] VITALS: BP 157/84
== END 2020-11-19 16:15 | disposition home or self-care (01) ==
LOC: EDUNIT# 07:23 → ER FS 07:24
DX: M54.6 Pain in thoracic spine (principal); R10.13 Epigastric pain; I10 Essential (primary) hypertension; I48.0 Paroxysmal atrial fibrillation; Z79.01 Long term (current) use of anticoagulants
CPT/HCPCS: 36415; 71275; 74175; 80053; 81000; 82947; 83690; 84484; 85025; 85610; 85730; 93005; 93041

== ENCOUNTER 2021-01-18 05:03 | Emergency (ER) | payer MEDICARE ==
[~2021-01-18] VITALS: Ht 162 cm; Wt 71.4 kg
[2021-01-18 05:49] LABS: HEMATOCRIT 42 % (35-52); MEAN CORPUSCULAR HEMOGLOBIN 27 pg (25-34); WHITE BLOOD COUNT 4.6 10^3/uL (4.3-11.0)
[2021-01-18 05:50] LABS: BASOPHILS % (AUTO) 1 % (0-10); EOSINOPHILS % (AUTO) 3 % (0-10); LYMPHOCYTES # (AUTO) 1.8 X 10^3 (1.0-4.0); LYMPHOCYTES % (AUTO) 39 % (12-44); MEAN CORPUSCULAR HGB CONC 33 g/dL (32-36); MEAN CORPUSCULAR VOLUME 82 fL (80-99); MEAN PLATELET VOLUME 10.8 fL (9.0-12.2); MONOCYTES # (AUTO) 0.7 X 10^3 (0.0-1.0); MONOCYTES % (AUTO) 15 % (0-12); NEUTROPHILS % (AUTO) 43 % (42-75); PLATELET COUNT 230 10^3/uL (130-400)
[2021-01-18 05:51] LABS: EOSINOPHILS # (AUTO) 0.1 10^3/uL (0.0-0.3)
--- NOTE | 2021-01-18 06:02 | ED Cardiac General ---
History of Present Illness General Chief Complaint: Cardiac/General Problems Stated Complaint: AFIB Nursing Triage Note: Pt reports waking up at 0400 with tightness in her chest. Reports her initial HR was in the 140s. Pt has hx of AFib and took 25mg of Metoprolol. Source: patient, family Exam Limitations: no limitations History of Present Illness Date Seen by Provider: Jan 18, 2021 Time Seen by Provider: 05:25 Initial Comments 55-year-old female with past medical history of paroxysmal A. fib on Xarelto and Multaq coming in after she woke up at 4 AM feeling palpitations and feeling like she was in A. fib. Last time this occurred was about a year ago. She is pretty sensitive and typically knows when she is in it. She takes 40 mg of Multaq twice daily and she had an extra dose of metoprolol that she was given to take if she felt like she was in A. fib. When she woke up at 4 AM she took the Multaq and the metoprolol. She said initially her heart rate was around 140 and blood pressure was normal to high. Had some mild chest discomfort and palpitations which she says is pretty usual when she is in it. No shortness of breath, nausea, vomiting, diarrhea, fever, chills, weakness, numbness, dysuria, or any other concerns. She has been eating and drinking normally, and denies any recent illness or reason that she would go into A. fib. ASA po IMPORT CLERK: No Allergies and Home Medications Allergies Coded Allergies: Beef Containing Products (Verified Allergy, Unknown, 11/17/18) Iodinated Contrast Media (Verified Allergy, Unknown, 11/17/18) Penicillins (Verified Allergy, Unknown, 11/17/18) Pork/Porcine Containing Products (Verified Allergy, Unknown, 11/17/18) Jxquzkj-Idm-Ntd Reductase Inhibitor (Verified Allergy, Unknown, 11/17/18) propoxyphene (Verified Allergy, Unknown, 11/17/18) Patient Home Medication List Home Medication List Reviewed: Yes Doxycycline Hyclate (Doxycycline Hyclate) 100 Mg Tablet, 100 MG PO BID Prescribed by: WANDA LIPSCOMB on 12/04/19 9516 Metoprolol Tartrate (Metoprolol Tartrate) 25 Mg Tablet, 25 MG PO BID Prescribed by: CORTNEY ARRIAGA on 03/01/19 8599 Phenazopyridine HCl (Pyridium) 200 Mg Tablet, 1 TAB PO BID Prescribed by: CORTNEY JEFFERSSTANITA on 03/11/20 1829 Review of Systems Review of Systems Constitutional: No chills, No fever EENTM: No Blurred Vision Respiratory: Denies Cough, Denies Shortness of Air Cardiovascular: Denies Chest Pain; Irregular Heart Rate Gastrointestinal: Denies Abdominal Pain, Denies Nausea Genitourinary: Denies Burning Musculoskeletal: No joint pain Skin: No rash Psychiatric/Neurological: No Symptoms Reported Endocrine: No Symptoms Reported Hematologic/Lymphatic: No Symptoms Reported All Other Systems Reviewed Negative Unless Noted: Yes Past Ickyzvv-Gbeohb-Djvgtc Hx Patient Social History Tobacco Use?: No Use of E-Cig and/or Vaping dev: No Substance use?: No Alcohol Use?: No Pt feels they are or have been: No Immunizations Up To Date Influenza Vaccine Up-to-Date: No; Not Current Seasonal Allergies Seasonal Allergies: No Past Medical History Surgery/Hospitalization HX: Hx htn, a-fib, high cholesterol, bilateral mastectomy Surgeries: Yes Breast, Orthopedic, Tonsillectomy Respiratory: No Cardiac: Yes High Cholesterol, Hypertension, Irregular Heartbeat Neurological: No Genitourinary: No Gastrointestinal: No Musculoskeletal: Yes (Left Achilles tendon rupture ) Fractures Endocrine: Yes Hypothyroidsim HEENT: Yes Glaucoma Cancer: Yes Psychosocial: No Integumentary: No Blood Disorders: No Family Medical History No Pertinent Family Hx Physical Exam Vital Signs Vital Signs - First Documented 01/18/21 05:08 Temp 36.4 Pulse 114 Resp 20 B/P (MAP) 169/76 (107) Pulse Ox 97 O2 Delivery Room Air Capillary Refill : Less Than 3 Seconds Height, Weight, BMI Height: 5'4.00" Weight: 163lbs. 0oz. [id number]; 27.00 BMI Method:Stated General Appearance: No Apparent Distress, WD/WN HEENT: PERRL/EOMI, Normal ENT Inspection, Pharynx Normal Neck: Full Range of Motion, Normal Inspection, Non Tender, Supple Respiratory: Chest Non Tender, Lungs Clear, Normal Breath Sounds, No Accessory Muscle Use, No Respiratory Distress Cardiovascular: No Edema, Normal Peripheral Pulses, Irregularly Irregular, Tachycardia Gastrointestinal: Normal Bowel Sounds, Non Tender, Soft; No Distended, No Guarding Extremity: Normal Capillary Refill, Normal Inspection, Normal Range of Motion, Non Tender, No Calf Tenderness, No Pedal Edema Neurologic/Psychiatric: Alert, Oriented x3, No Motor/Sensory Deficits, Normal Mood/Affect Skin: Normal Color, Warm/Dry Lymphatic: No Adenopathy Procedures/Interventions Suture Size: 4-0 Progress/Results/Core Measures Results/Orders Lab Results Laboratory Tests Test 01/18/21 05:25 Range/Units White Blood Count 4.6 4.3-11.0 10^3/uL Red Blood Count 5.13 H 3.80-5.11 10^6/uL Hemoglobin 14.0 11.5-16.0 g/dL Hematocrit 42 35-52 % Mean Corpuscular Volume 82 80-99 fL Mean Corpuscular Hemoglobin 27 25-34 pg Mean Corpuscular Hemoglobin Concent 33 32-36 g/dL Red Cell Distribution Width 14.0 10.0-14.5 % Platelet Count 230 130-400 10^3/uL Mean Platelet Volume 10.8 9.0-12.2 fL Immature Granulocyte % (Auto) 0 % Neutrophils (%) (Auto) 43 42-75 % Lymphocytes (%) (Auto) 39 12-44 % Monocytes (%) (Auto) 15 H 0-12 % Eosinophils (%) (Auto) 3 0-10 % Basophils (%) (Auto) 1 0-10 % Neutrophils # (Auto) 2.0 1.8-7.8 X 10^3 Lymphocytes # (Auto) 1.8 1.0-4.0 X 10^3 Monocytes # (Auto) 0.7 0.0-1.0 X 10^3 Eosinophils # (Auto) 0.1 0.0-0.3 10^3/uL Basophils # (Auto) 0.0 0.0-0.1 10^3/uL Immature Granulocyte # (Auto) 0.0 0.0-0.1 10^3/uL Sodium Level 135 135-145 MMOL/L Potassium Level 3.9 3.6-5.0 MMOL/L Chloride Level 100 98-107 MMOL/L Carbon Dioxide Level 23 21-32 MMOL/L Anion Gap 12 5-14 MMOL/L Blood Urea Nitrogen 13 7-18 MG/DL Creatinine 0.87 0.60-1.30 MG/DL Estimat Glomerular Filtration Rate 62 BUN/Creatinine Ratio 15 Glucose Level 121 H 70-105 MG/DL Calcium Level 9.4 8.5-10.1 MG/DL Corrected Calcium 8.5-10.1 MG/DL Magnesium Level 2.0 1.6-2.4 MG/DL Total Bilirubin 0.4 0.1-1.0 MG/DL Aspartate Amino Transf (AST/SGOT) 24 5-34 U/L Alanine Aminotransferase (ALT/SGPT) 15 0-55 U/L Alkaline Phosphatase 89 40-136 U/L Troponin I < 0.30 <0.30 NG/ML Total Protein 7.4 6.4-8.2 GM/DL Albumin 4.7 H 3.2-4.5 GM/DL My Orders Orders - RENAE SILVA MD Cbc With Automated Diff (01/18/21 05:38) Comprehensive Metabolic Panel (01/18/21 05:38) Magnesium (01/18/21 05:38) Troponin I Fs (01/18/21 05:38) Ed Iv/Invasive Line Start (01/18/21 05:38) Ekg Tracing (01/18/21 05:38) Ekg Tracing (01/18/21 05:47) Vital Signs/I&O 01/18/21 05:08 Temp 36.4 Pulse 114 Resp 20 B/P (MAP) 169/76 (107) Pulse Ox 97 O2 Delivery Room Air Blood Pressure Mean: 107 Progress Progress Note : Progress Note 85-year-old female with above history coming in because she feels like she is in A. fib. On arrival she was in fact in A. fib with a heart rate around one 15-1 20. EKG confirms she is in A. fib with no other ischemic changes. IV was placed and basic labs were obtained including cardiac markers. Shortly after I had my initial interview her heart rate went down to 60, and repeat EKG shows she is in sinus rhythm. Given that she took the Multaq and metoprolol about an hour prior to arrival, it probably just started being fully absorbed and working, and she converted herself. Electrolytes are essentially normal and troponin is negative. She is feeling back to her baseline. I refilled her prescription for metoprolol because she says she believes it is . She was then discharged home in stable condition with strict return precautions Initial ECG Impression Date: Jan 18, 2021 Initial ECG Impression Time: 05:12 Initial ECG Rate: 117 Initial ECG Rhythm: A Fib/Flutter Comment Narrow QRS, normal axis, no significant ST changes or T wave abnormalities EKG : EKG Time: 05:55 Rate: 53 Rhythm: Normal Sinus Comment Narrow QRS, normal axis, no significant ST or T wave abnormalities Departure Impression Primary Impression: Paroxysmal A-fib Disposition: 01 HOME, SELF-CARE Condition: Stable Departure-Patient Inst. Referrals: ALLIE ZHANG APRN (PCP) Primary Care Physician [facility] (Family) Primary Care Physician Patient Instructions: Atrial Fibrillation (DC) Add. Discharge Instructions: You are seen in the emergency department because you felt like you are in A. fib which you were. Fortunately the medications you took prior to arrival converted you. If you have these feelings again please come back to the ER or if you have any other concerns. Scripts Metoprolol Tartrate (Metoprolol Tartrate) 25 Mg Tablet 25 MG PO BID for 7 Days, #14 TAB Prov: RENAE SILVA MD 01/18/21 RENAE SILVA MD Jan 18, 2021 06:02
[2021-01-18 06:05] LABS: ALANINE AMINOTRANSFERASE 15 U/L (0-55); ALKALINE PHOSPHATASE 89 U/L (40-136); BILIRUBIN,TOTAL 0.4 MG/DL (0.1-1.0); BUN/CREATININE RATIO 15; CALCIUM 9.4 MG/DL (8.5-10.1); CARBON DIOXIDE 23 MMOL/L (21-32); CHLORIDE 100 MMOL/L (98-107); CREATININE SERUM 0.87 MG/DL (0.60-1.30); GFR ESTIMATED 62; GLUCOSE 121 MG/DL (70-105); POTASSIUM 3.9 MMOL/L (3.6-5.0); SODIUM 135 MMOL/L (135-145)
[2021-01-18 06:06] LABS: ALBUMIN 4.7 GM/DL (3.2-4.5); TOTAL PROTEIN 7.4 GM/DL (6.4-8.2)
[2021-01-18] MEDS ORDERED: METO-333 PO (06:19)
[2021-01-18 06:25] VITALS: BP 173/66
== END 2021-01-18 06:25 | disposition home or self-care (01) ==
LOC: EDUNIT# 05:03 → ER FS 05:06
DX: I48.0 Paroxysmal atrial fibrillation (principal); I10 Essential (primary) hypertension; Z79.899 Other long term (current) drug therapy
CPT/HCPCS: 36415; 80053; 83735; 84484; 85025; 93005

== ENCOUNTER → 2021-04-04 | Outpatient (CLI) | payer MEDICARE | LOC: CARD 10:30 | PROVIDERS: ATTEND Nurse Practitioner Family | DX: I48.0 Paroxysmal atrial fibrillation (principal); I51.7 Cardiomegaly; I34.0 Nonrheumatic mitral (valve) insufficiency | CPT/HCPCS: 93306 ==

== ENCOUNTER 2021-04-14 19:38 | Emergency (ER) | payer MEDICARE ==
[2021-04-14 19:53] LABS: BASOPHILS % (AUTO) 1 % (0-10); EOSINOPHILS % (AUTO) 0 % (0-10); HEMATOCRIT 40 % (35-52); HEMOGLOBIN 13.8 g/dL (11.5-16.0); LYMPHOCYTES # (AUTO) 0.9 10^3/uL (1.0-4.0); LYMPHOCYTES % (AUTO) 29 % (12-44); MEAN CORPUSCULAR HEMOGLOBIN 27 pg (25-34); MEAN CORPUSCULAR HGB CONC 35 g/dL (32-36); MEAN CORPUSCULAR VOLUME 79 fL (80-99); MONOCYTES # (AUTO) 0.6 10^3/uL (0.0-1.0); MONOCYTES % (AUTO) 20 % (0-12); NEUTROPHILS # (AUTO) 1.5 10^3/uL (1.8-7.8); NEUTROPHILS % (AUTO) 50 % (42-75); PLATELET COUNT 118 10^3/uL (130-400)
[2021-04-14] MEDS ORDERED: dilTIAZem DRIP PRE-MIX 125 ML IV SCH (20:00)
--- NOTE | 2021-04-14 20:02 | Diagnostic Imaging Report ---
INDICATION: Covid, atrial fibrillation. FINDINGS: The lungs are clear. There is no edema, pneumonia, effusion, pneumothorax or failure pattern. IMPRESSION: No acute appearing abnormality. Dictated by: Dictated on workstation # [id number]
[2021-04-14 20:23] LABS: CHLORIDE 90 MMOL/L (98-107); POTASSIUM 3.6 MMOL/L (3.6-5.0); SODIUM 124 MMOL/L (135-145)
[2021-04-14 20:24] LABS: ALANINE AMINOTRANSFERASE 18 U/L (0-55); ALBUMIN 4.1 GM/DL (3.2-4.5); ALKALINE PHOSPHATASE 71 U/L (40-136); BILIRUBIN,TOTAL 0.2 MG/DL (0.1-1.0); BUN/CREATININE RATIO 11; CALCIUM 8.6 MG/DL (8.5-10.1); CARBON DIOXIDE 20 MMOL/L (21-32); GFR ESTIMATED 85; GLUCOSE 166 MG/DL (70-105); MAGNESIUM 1.6 MG/DL (1.6-2.4); TOTAL PROTEIN 6.9 GM/DL (6.4-8.2)
[2021-04-14 20:34] LABS: BAND NEUTROPHILS 7 %; NEUTROPHILS % (MANUAL) 42 %
[2021-04-14 20:35] LABS: BASOPHILS % (MANUAL) 1 %; EOSINOPHILS % (MANUAL) 1 %; LYMPHOCYTES % (MANUAL) 32 %; MONOCYTES % (MANUAL) 17 %; PLATELET CLUMPS NO; PLATELET ESTIMATE DECREASED
[2021-04-14] MEDS ORDERED: NS IV 1000 ML 1,000 ML IV SCH (21:15)
[2021-04-14 21:30] LABS: BILIRUBIN,URINE NEGATIVE (NEGATIVE); CLARITY,URINE CLEAR; COLOR,URINE YELLOW; GLUCOSE, URINE (UA) NEGATIVE (NEGATIVE); KETONES,URINE NEGATIVE (NEGATIVE); LEUKOCYTE ESTERASE ,URINE NEGATIVE (NEGATIVE); NITRITE,URINE NEGATIVE (NEGATIVE); PROTEIN,URINE NEGATIVE (NEGATIVE)
[2021-04-14 21:36] LABS: BACTERIA,URINE NEGATIVE /HPF; SQUAMOUS EPITHELIAL CELL,UR 0-2 /HPF; WBC,URINE RARE /HPF
[2021-04-14 23:18] VITALS: BP 164/50
--- NOTE | 2021-04-14 23:20 | ED Cardiac General ---
History of Present Illness General Chief Complaint: Cardiac/General Problems Stated Complaint: COVID+,AFIB Nursing Triage Note: Pt brought in by ems with a rapid heart rate. Pt has a hx of afib and tested positive for covid on Sunday Source: patient Exam Limitations: no limitations History of Present Illness Date Seen by Provider: Apr 14, 2021 Time Seen by Provider: 19:45 Initial Comments Patient is an 85-year-old female with history of paroxysmal atrial fibrillation currently on Xarelto who presents with A. fib with RVR. Symptoms began approximately 2 hours prior to ED arrival. Patient states she has shoulder pain when she is in A. fib with RVR. Patient denies chest pain palpitations, shortness of breath, dizziness or lightheadedness. She does report generalized weakness. Patient was also diagnosed with Covid earlier this week. Patient contacted EMS. 20 mg of IV Cardizem was given prior to ED arrival for rate control. Patient remains in A. fib with RVR with a rate in the 120s and normotensive on ED arrival. Patient is not in distress. No recent change in cardiac medications. No missed doses doses. Additional history per the patient's son who is also a outpatient services director in the county. Timing/Duration: 4-6 hours Severity: moderate Location: back, other Prior CP/Workup: other Modifying Factors: improves with other NTG SL CONFIDENTIAL INVESTIGATOR: No ASA po CONFIDENTIAL INVESTIGATOR: No Associated Systoms: Other Allergies and Home Medications Allergies Coded Allergies: Beef Containing Products (Verified Allergy, Unknown, 11/17/18) Iodinated Contrast Media (Verified Allergy, Unknown, 11/17/18) Penicillins (Verified Allergy, Unknown, 11/17/18) Pork/Porcine Containing Products (Verified Allergy, Unknown, 11/17/18) Eajxzvl-Pfz-Raf Reductase Inhibitor (Verified Allergy, Unknown, 11/17/18) propoxyphene (Verified Allergy, Unknown, 11/17/18) Patient Home Medication List Home Medication List Reviewed: Yes Doxycycline Hyclate (Doxycycline Hyclate) 100 Mg Tablet, 100 MG PO BID Prescribed by: WANDA LIPSCOMB on 12/04/19 1145 Metoprolol Tartrate (Metoprolol Tartrate) 25 Mg Tablet, 25 MG PO BID Prescribed by: CORTNEY ARRIAGA on 03/01/19 0358 Metoprolol Tartrate (Metoprolol Tartrate) 25 Mg Tablet, 25 MG PO BID Prescribed by: RENAE SILVA on 01/18/21 0619 Phenazopyridine HCl (Pyridium) 200 Mg Tablet, 1 TAB PO BID Prescribed by: CORTENY ARRIAGA on 03/11/20 1829 Review of Systems Review of Systems Constitutional: see HPI EENTM: See HPI Respiratory: See HPI Cardiovascular: See HPI Gastrointestinal: See HPI Genitourinary: See HPI Musculoskeletal: see HPI Skin: see HPI Psychiatric/Neurological: See HPI Endocrine: See HPI Hematologic/Lymphatic: See HPI All Other Systems Reviewed Negative Unless Noted: Yes Past Pxqguwf-Ubywov-Rzbyfg Hx Patient Social History Tobacco Use?: No Use of E-Cig and/or Vaping dev: No Substance use?: No Alcohol Use?: No Pt feels they are or have been: No Seasonal Allergies Seasonal Allergies: No Past Medical History Surgery/Hospitalization HX: Hx htn, a-fib, high cholesterol, bilateral mastectomy Surgeries: Yes Breast, Orthopedic, Tonsillectomy Respiratory: No Cardiac: Yes High Cholesterol, Hypertension, Irregular Heartbeat Neurological: No Genitourinary: No Gastrointestinal: No Musculoskeletal: Yes (Left Achilles tendon rupture ) Fractures Endocrine: Yes Hypothyroidsim HEENT: Yes Glaucoma Cancer: Yes Psychosocial: No Integumentary: No Blood Disorders: No Family Medical History No Pertinent Family Hx Physical Exam Vital Signs Vital Signs - First Documented 04/14/21 19:38 Temp 36.7 Pulse 93 Resp 20 B/P (MAP) 149/73 (98) Pulse Ox 96 O2 Delivery Room Air Capillary Refill : Less Than 3 Seconds Height, Weight, BMI Height: 5'4.00" Weight: 163lbs. 0oz. 73.112632uv; 27.00 BMI Method:Stated General Appearance: No Apparent Distress, Moderate Distress HEENT: PERRL/EOMI, Normal ENT Inspection, Moist Mucous Membranes Neck: Full Range of Motion, Normal Inspection Respiratory: Lungs Clear Cardiovascular: Irregularly Irregular, Tachycardia Gastrointestinal: Non Tender, Soft Extremity: Normal Range of Motion, Non Tender, No Calf Tenderness Neurologic/Psychiatric: Alert, Oriented x3, No Motor/Sensory Deficits, Normal Mood/Affect Skin: Normal Color Focused Exam Sepsis Stage: Ruled Out Procedures/Interventions Suture Size: 4-0 Progress/Results/Core Measures Results/Orders Lab Results Laboratory Tests Test 04/14/21 19:42 04/14/21 20:19 Range/Units White Blood Count 3.0 L 4.3-11.0 10^3/uL Red Blood Count 5.05 3.80-5.11 10^6/uL Hemoglobin 13.8 11.5-16.0 g/dL Hematocrit 40 35-52 % Mean Corpuscular Volume 79 L 80-99 fL Mean Corpuscular Hemoglobin 27 25-34 pg Mean Corpuscular Hemoglobin Concent 35 32-36 g/dL Red Cell Distribution Width 13.5 10.0-14.5 % Platelet Count 118 L 130-400 10^3/uL Mean Platelet Volume 11.0 9.0-12.2 fL Immature Granulocyte % (Auto) 0 % Neutrophils (%) (Auto) 50 42-75 % Lymphocytes (%) (Auto) 29 12-44 % Monocytes (%) (Auto) 20 H 0-12 % Eosinophils (%) (Auto) 0 0-10 % Basophils (%) (Auto) 1 0-10 % Neutrophils # (Auto) 1.5 L 1.8-7.8 10^3/uL Lymphocytes # (Auto) 0.9 L 1.0-4.0 10^3/uL Monocytes # (Auto) 0.6 0.0-1.0 10^3/uL Eosinophils # (Auto) 0.0 0.0-0.3 10^3/uL Basophils # (Auto) 0.0 0.0-0.1 10^3/uL Immature Granulocyte # (Auto) 0.0 0.0-0.1 10^3/uL Neutrophils % (Manual) 42 % Lymphocytes % (Manual) 32 % Monocytes % (Manual) 17 % Eosinophils % (Manual) 1 % Basophils % (Manual) 1 % Band Neutrophils 7 % Platelet Estimate DECREASED Clumped Platelets NO Sodium Level 124 *L 135-145 MMOL/L Potassium Level 3.6 3.6-5.0 MMOL/L Chloride Level 90 L 98-107 MMOL/L Carbon Dioxide Level 20 L 21-32 MMOL/L Anion Gap 14 5-14 MMOL/L Blood Urea Nitrogen 8 7-18 MG/DL Creatinine 0.70 0.60-1.30 MG/DL Estimat Glomerular Filtration Rate 85 BUN/Creatinine Ratio 11 Glucose Level 166 H 70-105 MG/DL Calcium Level 8.6 8.5-10.1 MG/DL Corrected Calcium 8.5 8.5-10.1 MG/DL Magnesium Level 1.6 1.6-2.4 MG/DL Total Bilirubin 0.2 0.1-1.0 MG/DL Aspartate Amino Transf (AST/SGOT) 27 5-34 U/L Alanine Aminotransferase (ALT/SGPT) 18 0-55 U/L Alkaline Phosphatase 71 40-136 U/L Troponin I < 0.30 <0.30 NG/ML Pro-B-Type Natriuretic Peptide 132.0 H <75.0 PG/ML Total Protein 6.9 6.4-8.2 GM/DL Albumin 4.1 3.2-4.5 GM/DL Urine Color YELLOW Urine Clarity CLEAR Urine pH 6.0 5-9 Urine Specific [place] 1.015 L 1.016-1.022 Urine Protein NEGATIVE NEGATIVE Urine Glucose (UA) NEGATIVE NEGATIVE Urine Ketones NEGATIVE NEGATIVE Urine Nitrite NEGATIVE NEGATIVE Urine Bilirubin NEGATIVE NEGATIVE Urine Urobilinogen 0.2 < = 1.0 MG/DL Urine Leukocyte Esterase NEGATIVE NEGATIVE Urine RBC (Auto) 2+ H NEGATIVE Urine RBC 10-25 H /HPF Urine WBC RARE /HPF Urine Squamous Epithelial Cells 0-2 /HPF Urine Crystals NONE /LPF Urine Bacteria NEGATIVE /HPF Urine Casts NONE /LPF Urine Mucus NEGATIVE /LPF Urine Culture Indicated NO My Orders Stephania - MANDI STRAUSS DO Cbc With Automated Diff (04/14/21 19:48) Comprehensive Metabolic Panel (04/14/21 19:48) Ua Culture If Indicated (04/14/21 19:48) Magnesium (04/14/21 19:48) Troponin I Fs (04/14/21 19:48) Probnp Fs (04/14/21 19:48) Chest 1 View Ap/Pa Only (04/14/21 19:48) Diltiazem Drip Pre-Mix (Cardizem Drip Pr (04/14/21 20:00) Manual Differential (04/14/21 19:42) Ns Iv 1000 Ml (Sodium Chloride 0.9%) (04/14/21 21:15) Ekg Tracing (04/14/21 23:10) Ekg Tracing (04/14/21 23:13) Vital Signs/I&O 04/14/21 19:38 Temp 36.7 Pulse 93 Resp 20 B/P (MAP) 149/73 (98) Pulse Ox 96 O2 Delivery Room Air Blood Pressure Mean: 98 Departure Communication (Admissions) Chest x-ray: No acute cardiopulmonary disease per radiology report. EKG 1: A. fib with RVR. EKG #2: Sinus bradycardia, rate 47 Patient given a liter of fluids and placed on a Cardizem drip. Patient converted to sinus bradycardia. Shoulder pain resolved. Patient is normotensive. Patient will be discharged home with instructions to follow-up with PCP next week for reevaluation of sodium. Return precautions reviewed. Patient verbalizes understanding agreement discharge instructions prior to departure. Patient discharged to custody of her son. Impression Primary Impression: Atrial fibrillation with RVR Additional Impression: Hyponatremia Disposition: HOME, SELF-CARE Condition: Stable Departure-Patient Inst. Decision time for Depature: 23:21 Referrals: ALLIE ZHANG APRN (PCP) Primary Care Physician [facility] (Family) Primary Care Physician Patient Instructions: Atrial Fibrillation (DC), Hyponatremia (DC) Add. Discharge Instructions: Please go home and sleep. Continue home medications as directed. Please increase daily fluid intake and follow-up with your PCP next week to recheck sodium levels. 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 In the meantime, return to the ED if you develop any new or concerning symptoms. All discharge instructions reviewed with patient and/or family. Voiced understanding. MANDI STRAUSS DO Apr 14, 2021 23:20
== END 2021-04-14 23:30 | disposition home or self-care (01) ==
LOC: ER FS 19:38 → EDUNIT# 19:40 → ER FS 23:30
DX: I48.20 Chronic atrial fibrillation, unspecified (principal); E87.1 Hypo-osmolality and hyponatremia; R00.0 Tachycardia, unspecified; I10 Essential (primary) hypertension
CPT/HCPCS: 36415; 71045; 80053; 81000; 83735; 83880; 84484; 85007; 85027; 93005

== ENCOUNTER 2021-11-27 08:33 | Emergency (ER) | payer MEDICARE ==
--- NOTE | 2021-11-27 08:39 | ED Cardiac General ---
History of Present Illness General Stated Complaint: A-FIB History of Present Illness Date Seen by Provider: Nov 27, 2021 Time Seen by Provider: 08:39 Initial Comments 86-year-old female with PMH of A-Fib, is here with complaints of palpitations with chest pressure today morning, with her heart monitor showing that her pulse was in the 120s. Patient last saw her melter clerk in May 2021, and since then she has had 2 episodes of A. fib including today. Denies fever, recent cough or cold, abdominal pain, shortness of breath. Allergies and Home Medications Allergies Coded Allergies: Beef Containing Products (Verified Allergy, Unknown, 11/17/18) Iodinated Contrast Media (Verified Allergy, Unknown, 11/17/18) Penicillins (Verified Allergy, Unknown, 11/17/18) Pork/Porcine Containing Products (Verified Allergy, Unknown, 11/17/18) Sukewwl-ROU-GjZ Reductase Inhibitor (Verified Allergy, Unknown, 11/17/18) propoxyphene (Verified Allergy, Unknown, 11/17/18) Patient Home Medication List Home Medication List Reviewed: Yes Doxycycline Hyclate (Doxycycline Hyclate) 100 Mg Tablet, 100 MG PO BID Prescribed by: WANDA LIPSCOMB on 12/04/19 1145 Metoprolol Tartrate (Metoprolol Tartrate) 25 Mg Tablet, 25 MG PO BID Prescribed by: CORTNEY ARRIAGA on 03/01/19 0358 Metoprolol Tartrate (Metoprolol Tartrate) 25 Mg Tablet, 25 MG PO BID Prescribed by: RENAE SILVA on 01/18/21 0619 Phenazopyridine HCl (Pyridium) 200 Mg Tablet, 1 TAB PO BID Prescribed by: CORTNEY ARRIAGA on 03/11/20 1829 Review of Systems Review of Systems Constitutional: no symptoms reported EENTM: No Symptoms Reported Respiratory: No Symptoms Reported Cardiovascular: Irregular Heart Rate Gastrointestinal: No Symptoms Reported Genitourinary: No Symptoms Reported Musculoskeletal: no symptoms reported Skin: no symptoms reported Psychiatric/Neurological: No Symptoms Reported Endocrine: No Symptoms Reported Hematologic/Lymphatic: No Symptoms Reported Physical Exam Vital Signs Vital Signs - First Documented 11/27/21 09:10 Pulse 111 B/P (MAP) 155/90 Capillary Refill : Height, Weight, BMI Height: '" Weight: lbs. oz. kg; BMI Method: General Appearance: No Apparent Distress HEENT: PERRL/EOMI Neck: Full Range of Motion, Normal Inspection Respiratory: Chest Non Tender, Lungs Clear, Normal Breath Sounds Cardiovascular: Irregularly Irregular Gastrointestinal: Normal Bowel Sounds, Non Tender, Soft Extremity: Normal Range of Motion Neurologic/Psychiatric: Alert, Oriented x3, No Motor/Sensory Deficits Skin: Normal Color Progress/Results/Core Measures Results/Orders Lab Results Laboratory Tests Test 11/27/21 08:45 11/27/21 08:52 Range/Units Urine Color YELLOW Urine Clarity CLEAR Urine pH 7.0 5-9 Urine Specific Alba 1.010 L 1.016-1.022 Urine Protein 1+ H NEGATIVE Urine Glucose (UA) NEGATIVE NEGATIVE Urine Ketones NEGATIVE NEGATIVE Urine Nitrite NEGATIVE NEGATIVE Urine Bilirubin NEGATIVE NEGATIVE Urine Urobilinogen 0.2 < = 1.0 MG/DL Urine Leukocyte Esterase NEGATIVE NEGATIVE Urine RBC (Auto) TRACE-I H NEGATIVE Urine RBC RARE /HPF Urine WBC 0-2 /HPF Urine Crystals NONE /LPF Urine Bacteria TRACE /HPF Urine Casts NONE /LPF Urine Mucus NEGATIVE /LPF Urine Culture Indicated NO White Blood Count 4.9 4.3-11.0 10^3/uL Red Blood Count 5.26 H 3.80-5.11 10^6/uL Hemoglobin 13.6 11.5-16.0 g/dL Hematocrit 41 35-52 % Mean Corpuscular Volume 79 L 80-99 fL Mean Corpuscular Hemoglobin 26 25-34 pg Mean Corpuscular Hemoglobin Concent 33 32-36 g/dL Red Cell Distribution Width 15.6 H 10.0-14.5 % Platelet Count 250 130-400 10^3/uL Mean Platelet Volume 10.8 9.0-12.2 fL Immature Granulocyte % (Auto) 0 % Neutrophils (%) (Auto) 55 42-75 % Lymphocytes (%) (Auto) 28 12-44 % Monocytes (%) (Auto) 13 H 0-12 % Eosinophils (%) (Auto) 3 0-10 % Basophils (%) (Auto) 1 0-10 % Neutrophils # (Auto) 2.7 1.8-7.8 10^3/uL Lymphocytes # (Auto) 1.4 1.0-4.0 10^3/uL Monocytes # (Auto) 0.6 0.0-1.0 10^3/uL Eosinophils # (Auto) 0.1 0.0-0.3 10^3/uL Basophils # (Auto) 0.1 0.0-0.1 10^3/uL Immature Granulocyte # (Auto) 0.0 0.0-0.1 10^3/uL Prothrombin Time 17.1 H 12.2-14.7 SEC INR Comment 1.4 0.8-1.4 Activated Partial Thromboplast Time 43 H 24-35 SEC Sodium Level 135 135-145 MMOL/L Potassium Level 5.8 H 3.6-5.0 MMOL/L Chloride Level 102 98-107 MMOL/L Carbon Dioxide Level 20 L 21-32 MMOL/L Anion Gap 13 5-14 MMOL/L Blood Urea Nitrogen 11 7-18 MG/DL Creatinine 0.79 0.60-1.30 MG/DL Estimat Glomerular Filtration Rate 73 BUN/Creatinine Ratio 14 Glucose Level 138 H 70-105 MG/DL Calcium Level 9.2 8.5-10.1 MG/DL Corrected Calcium 8.5-10.1 MG/DL Magnesium Level 2.0 1.6-2.4 MG/DL Total Bilirubin 0.5 0.1-1.0 MG/DL Aspartate Amino Transf (AST/SGOT) 46 H 5-34 U/L Alanine Aminotransferase (ALT/SGPT) 14 0-55 U/L Alkaline Phosphatase 87 40-136 U/L Troponin I < 0.30 <0.30 NG/ML Pro-B-Type Natriuretic Peptide 102.2 <450.0 PG/ML Total Protein 7.8 6.4-8.2 GM/DL Albumin 4.8 H 3.2-4.5 GM/DL My Orders Orders - ELLIE LACY MD Cbc With Automated Diff (11/27/21 08:45) Comprehensive Metabolic Panel (11/27/21 08:45) Magnesium (11/27/21 08:45) Protime With Inr (11/27/21 08:45) Partial Thromboplastin Time (11/27/21 08:45) Ua Culture If Indicated (11/27/21 08:45) Probnp Fs (11/27/21 08:45) Troponin I Fs (11/27/21 08:45) Chest 1 View Ap/Pa Only (11/27/21 08:45) Thyroid Analyzer (11/27/21 08:50) Diltiazem Drip Pre-Mix (Cardizem Drip Pr (11/27/21 08:58) Diltiazem Injection (Cardizem Injection) (11/27/21 09:00) Medications Given in ED Current Medications Medications Dose Ordered Sig/Jaylan Route Start Time Stop Time Status Last Admin Dose Admin Diltiazem HCl 5 mg ONCE ONCE IVP 11/27/21 09:00 11/27/21 09:23 DC 11/27/21 09:10 5 MG Vital Signs/I&O 11/27/21 09:10 Pulse 111 B/P (MAP) 155/90 Progress Progress Note : Progress Note 1. A-FIB, Resolved - Initially EKG showwe A-Fib in 100-120's, with EKG confirming . Then prior to starting Cardizem, pt corrected on her own without medications. Heart rate became regular andin the 50's which is her baseline. - Labs : overall normal - CXR unremarkable - Follow up with [facility] STRAIGHTENER and cardiology within the next 7 days -The patient was seen in the ED, and treated appropriately to presentation at a specific point in time. Patient is informed that there is a possibility that disease and illness can evolve and change in acuity rapidly or slowly after patient is discharged from the ER. Precautionary advice given to the patient for immediate return to ER if symptoms worsen or do not resolve, and to seek emergency care sooner rather than later. Pt also advised on the importance of PCP follow up and compliance with management and follow up plan with PCP and/or specialist, as this is part of the management plan. Pt verbally expressed understanding. 2. HYPERKALEMIA: - s. Potassium is 5.8 - Advised to hold potassium supplementation for the next 3 days. Pt already tok her potassium today. - out-patient lab for BMP ordered to re-check potassium level Diagnostic Imaging Diagonstic Imaging: Xray Plain Films/CT/US/NM/MRI: chest Comments [facility]. [place], [place] NAME: ZAKIYA HOLDEN Lexi [facility] REC#: [id number] PT STATUS: REG ER : 1935 PHYSICIAN: ELLIE LACY MD ADMIT DATE: 11/27/21/ER FS Draft Date of Exam:11/27/21 CHEST 1 VIEW AP/PA ONLY EXAMINATION: Chest 1 view HISTORY: Palpitations COMPARISON: 04/14/2021 FINDINGS: The lungs are clear without edema or pneumonia. No pleural effusion or pneumothorax. Heart size is normal. There are surgical clips in the right chest wall. IMPRESSION: 1. Clear lungs. Dictated on workstation # [id number] Dict: 11/27/21911 Trans: 11/27/21913 [facility] [id number] Interpreted by: VANESSA LUCAS MD Electronically signed by: Departure Impression Primary Impression: Atrial fibrillation Qualified Codes: I48.91 - Unspecified atrial fibrillation Additional Impression: Hyperkalemia Disposition: HOME, SELF-CARE Condition: Improved Departure-Patient Inst. Patient Instructions: Atrial Fibrillation, Hyperkalemia Add. Discharge Instructions: - Follow up with [facility] STRAIGHTENER and cardiology within the next 7 days - Advised to hold potassium supplementation for the next 3 days. - out-patient lab for BMP ordered to re-check potassium level - Return to ER if symptoms worsening ELLIE LACY MD Nov 27, 2021 08:39
[2021-11-27] MEDS ORDERED: dilTIAZem DRIP PRE-MIX 125 ML IV STA (08:58)
[2021-11-27 09:04] LABS: BASOPHILS # (AUTO) 0.1 10^3/uL (0.0-0.1); BASOPHILS % (AUTO) 1 % (0-10); EOSINOPHILS # (AUTO) 0.1 10^3/uL (0.0-0.3); EOSINOPHILS % (AUTO) 3 % (0-10); HEMATOCRIT 41 % (35-52); HEMOGLOBIN 13.6 g/dL (11.5-16.0); LYMPHOCYTES # (AUTO) 1.4 10^3/uL (1.0-4.0); LYMPHOCYTES % (AUTO) 28 % (12-44); MEAN CORPUSCULAR HEMOGLOBIN 26 pg (25-34); MEAN CORPUSCULAR HGB CONC 33 g/dL (32-36); MEAN CORPUSCULAR VOLUME 79 fL (80-99); MEAN PLATELET VOLUME 10.8 fL (9.0-12.2); MONOCYTES # (AUTO) 0.6 10^3/uL (0.0-1.0); MONOCYTES % (AUTO) 13 % (0-12); NEUTROPHILS # (AUTO) 2.7 10^3/uL (1.8-7.8); NEUTROPHILS % (AUTO) 55 % (42-75); PLATELET COUNT 250 10^3/uL (130-400); WHITE BLOOD COUNT 4.9 10^3/uL (4.3-11.0)
[2021-11-27 09:05] LABS: BILIRUBIN,URINE NEGATIVE (NEGATIVE); CLARITY,URINE CLEAR; COLOR,URINE YELLOW; GLUCOSE, URINE (UA) NEGATIVE (NEGATIVE); KETONES,URINE NEGATIVE (NEGATIVE); LEUKOCYTE ESTERASE ,URINE NEGATIVE (NEGATIVE); NITRITE,URINE NEGATIVE (NEGATIVE); PROTEIN,URINE 1+ (NEGATIVE)
[2021-11-27 09:07] LABS: BACTERIA,URINE TRACE /HPF; RBC,URINE RARE /HPF; WBC,URINE 0-2 /HPF
--- NOTE | 2021-11-27 09:15 | Diagnostic Imaging Report ---
EXAMINATION: Chest 1 view HISTORY: Palpitations COMPARISON: 04/14/2021 FINDINGS: The lungs are clear without edema or pneumonia. No pleural effusion or pneumothorax. Heart size is normal. There are surgical clips in the right chest wall. IMPRESSION: 1. Clear lungs. Dictated by: Dictated on workstation # [id number]
[2021-11-27 09:19] LABS: INR 1.4 (0.8-1.4); PROTHROMBIN TIME PATIENT 17.1 SEC (12.2-14.7)
[2021-11-27 09:29] LABS: ALANINE AMINOTRANSFERASE 14 U/L (0-55); ALBUMIN 4.8 GM/DL (3.2-4.5); ALKALINE PHOSPHATASE 87 U/L (40-136); BILIRUBIN,TOTAL 0.5 MG/DL (0.1-1.0); BUN/CREATININE RATIO 14; CALCIUM 9.2 MG/DL (8.5-10.1); CARBON DIOXIDE 20 MMOL/L (21-32); CHLORIDE 102 MMOL/L (98-107); CREATININE SERUM 0.79 MG/DL (0.60-1.30); GFR ESTIMATED 73; GLUCOSE 138 MG/DL (70-105); POTASSIUM 5.8 MMOL/L (3.6-5.0); SODIUM 135 MMOL/L (135-145); TOTAL PROTEIN 7.8 GM/DL (6.4-8.2)
[2021-11-27 09:43] VITALS: BP 160/61
== END 2021-11-27 10:11 | disposition home or self-care (01) ==
LOC: EDUNIT# 08:33 → ER FS 08:43
DX: I48.91 Unspecified atrial fibrillation (principal); E87.5 Hyperkalemia
CPT/HCPCS: 36415; 71045; 80053; 81000; 83735; 83880; 84443; 84484; 85025; 85610; 85730; 93005; 93041

== ENCOUNTER 2022-03-18 19:20 | Emergency (ER) | payer MEDICARE ==
[~2022-03-18] VITALS: Ht 162.5 cm; Wt 70.4 kg
--- NOTE | 2022-03-18 19:30 | ED Fall/Injury ---
General Stated Complaint: FALL, RT FT/HIP PAIN History of Present Illness Date Seen by Provider: Mar 18, 2022 Time Seen by Provider: 19:30 Initial Comments 86-year-old female with PMH of A. fib/HTN/hyperkalemia, is brought in by EMS with complaints of having a trip and fall over her carpet at home resulting in right hip pain and right toes pain. Patient uses a cane at baseline to walk. Patient is unable to ambulate or bear weight at this time after the fall. Denies head strike, LOC, dizziness, headache, blurry vision, chest pain. Patient states that pain is 9/10 but improved with fentanyl and Zofran which was given to her in the ambulance. Patient takes Xarelto. Allergies and Home Medications Allergies Coded Allergies: Beef Containing Products (Verified Allergy, Unknown, 11/17/18) Iodinated Contrast Media (Verified Allergy, Unknown, 11/17/18) Penicillins (Verified Allergy, Unknown, 11/17/18) Pork/Porcine Containing Products (Verified Allergy, Unknown, 11/17/18) Azstlml-JFW-LkG Reductase Inhibitor (Verified Allergy, Unknown, 11/17/18) propoxyphene (Verified Allergy, Unknown, 11/17/18) Patient Home Medication List Home Medication List Reviewed: Yes Discontinued Medications Doxycycline Hyclate (Doxycycline Hyclate) 100 Mg Tablet, 100 MG PO BID Discontinued Reason: Referral/FU Appt-Addtl Prescribed by: WANDA LIPSCOMB on 12/04/19 1145 Last Action: Discontinued Metoprolol Tartrate (Metoprolol Tartrate) 25 Mg Tablet, 25 MG PO BID Discontinued Reason: Referral/FU Appt-Addtl Prescribed by: CORTNEY ARRIAGA on 03/01/19 4208 Last Action: Discontinued Metoprolol Tartrate (Metoprolol Tartrate) 25 Mg Tablet, 25 MG PO BID Discontinued Reason: Referral/FU Appt-Addtl Prescribed by: RENAE SILVA on 01/18/21 0619 Last Action: Discontinued Phenazopyridine HCl (Pyridium) 200 Mg Tablet, 1 TAB PO BID Discontinued Reason: Referral/FU Appt-Addtl Prescribed by: CORTNEY ARRIAGA on 03/11/20 4850 Last Action: Discontinued Review of Systems Review of Systems Constitutional: no symptoms reported Eyes: No Symptoms Reported Ears, Nose, Mouth, Throat: no symptoms reported Respiratory: no symptoms reported Cardiovascular: no symptoms reported Gastrointestinal: no symptoms reported Genitourinary: no symptoms reported Musculoskeletal: joint pain Skin: no symptoms reported Psychiatric/Neurological: No Symptoms Reported Past Zcsxhye-Gyoiwo-Bauonb Hx Seasonal Allergies Seasonal Allergies: No Past Medical History Surgery/Hospitalization HX: Hx htn, a-fib, high cholesterol, bilateral mastectomy Surgeries: Yes Breast, Orthopedic, Tonsillectomy Respiratory: No Cardiac: Yes High Cholesterol, Hypertension, Irregular Heartbeat Neurological: No Genitourinary: No Gastrointestinal: No Musculoskeletal: Yes (Left Achilles tendon rupture ) Fractures Endocrine: Yes Hypothyroidsim HEENT: Yes Glaucoma Cancer: Yes Psychosocial: No Integumentary: No Blood Disorders: No Family Medical History No Pertinent Family Hx Physical Exam Vital Signs Vital Signs - First Documented 03/18/22 19:28 Temp 36.4 Pulse 64 Resp 20 B/P (MAP) 181/63 (102) Pulse Ox 97 O2 Delivery Room Air Capillary Refill : Height, Weight, BMI Height: 5'4.00" Weight: 163lbs. 0oz. 73.158734vm; 27.00 BMI Method:Stated General Appearance: WD/WN, mild distress HEENT: PERRL/EOMI, normal ENT inspection Neck: non-tender, full range of motion, supple, normal inspection Cardiovascular: regular rate, rhythm Respiratory: chest non-tender, lungs clear, normal breath sounds Gastrointestinal: non tender, soft Pelvic: normal external exam, other (Tenderness to right hip area and patient has restricted ROM. NV bundle intact) Back: normal inspection, no vertebral tenderness Extremities: other (Right foot/toes: Tenderness to palpation of all 5 toes but she has unrestricted ROM) Neurologic/Psychiatric: no motor/sensory deficits, alert, normal mood/affect, oriented x 3 Skin: normal color Yohana Coma Score Best Eye Response: (4) Open Spontaneously Best Verbal Response: (5) Oriented Best Motor Response: (6) Obeys Commands Yohana Total: 15 Procedures/Interventions Suture Size: 4-0 Progress/Results/Core Measures Results/Orders My Orders Orders - ELLIE LACY MD Foot 3 View Right (03/18/22 19:31) Pelvis With Right Hip 2-3 View (03/18/22 19:31) Cbc With Automated Diff (03/18/22 20:31) Comprehensive Metabolic Panel (03/18/22 20:31) Vital Signs/I&O 03/18/22 19:28 Temp 36.4 Pulse 64 Resp 20 B/P (MAP) 181/63 (102) Pulse Ox 97 O2 Delivery Room Air Progress Progress Note : Progress Note 1. RIGHT FEMUR NECK FRACTURE DUE TO FALL: - XR RIGHT HIP/ PELVIS: Right femur neck fracture - XR RIGHT FOOT: No acute findings. Patient states she had an Achilles tear years ago but there is no pain on her heel or her Achilles tendon. - CBC/ CMP/ UA: - Pt's family want her to be transferred to [facility]. [facility] does not have Ortho available for the next couple of days. - Pt is on Xarelto - Fentanyl and Zofran given by EMS - Pt accepted by Dr Bañuelos, trauma, for ER to ER transfer for Ortho assessment Diagnostic Imaging Diagonstic Imaging: Xray Plain Films/CT/US/NM/MRI: pelvis, hip, other Comments [facility] [place] [place] NAME: ZAKIYA HOLDEN MED REC#: [id number] PT STATUS: REG ER : 1935 PHYSICIAN: ELLIE LACY MD ADMIT DATE: 03/18/22/ER FS Draft Date of Exam:03/18/22 PELVIS WITH RIGHT HIP 2-3 VIEW INDICATION: Fall, pain. COMPARISON: None available. TECHNIQUE: Three radiographs of the pelvis and right hip dated March 18, 2022. FINDINGS: Mild degenerative changes of the partially visualized lower lumbar spine and pubic symphysis. Acute right femoral neck fracturing is noted which is minimally impacted with minimal valgus configuration. No additional fracture or dislocation. No destructive osseous process. Phleboliths in the lower pelvis. IMPRESSION: Acute right femoral neck fracture with minimal impaction and valgus configuration. Mild scattered degenerative changes. Dictated on workstation # [id number] Dict: 03/18/222001 Trans: 03/18/222004 PJE [id number] Interpreted by: MARISOL BILLS MD Electronically signed by: [facility] [place] [place] NAME: ZAKIYA HOLDEN MED REC#: [id number] PT STATUS: REG ER : 1935 PHYSICIAN: ELLIE LACY MD ADMIT DATE: 03/18/22/ER FS Draft Date of Exam:03/18/22 FOOT 3 VIEW RIGHT INDICATION: Fall, pain. COMPARISON: None available. TECHNIQUE: Three radiographs of the right foot dated 03/18/2022. FINDINGS: Osseous demineralization. Small posterior and plantar calcaneal enthesophytes. Additional calcifications are seen overlying the expected location of the insertion site of the Achilles tendon. No additional fracture or dislocation. Lisfranc joint is well aligned. Mild scattered degenerative changes. No suspicious radiopaque foreign body. IMPRESSION: Calcifications overlying the expected insertion site of the Achilles tendon is favored to relate to dystrophic calcifications and underlying tendinopathy. Fracturing of a posterior calcaneal enthesophyte not excluded. Recommend correlation for focal pain at this location. Additional mild scattered osseous degenerative changes with osseous demineralization noted. Dictated on workstation # [id number] Dict: 03/18/221958 Trans: 03/18/222003 [facility] [id number] Interpreted by: MARISOL BILLS MD Electronically signed by: Departure Impression Primary Impression: Fracture of femoral neck, right, closed Qualified Codes: S72.001A - Fracture of unspecified part of neck of right femur, initial encounter for closed fracture Additional Impression: Fall Qualified Codes: W19.XXXA - Unspecified fall, initial encounter Disposition: XFER [facility] Condition: Stable Transfer Transfer Reason: Exceeds level of care Time Spoke to Accepting Phy: 20:39 Transfer Progress Notes Patient is excepted for ER to ER transfer for Ortho assessment by Transfer Facility: [facility] Method of Transfer: EMS Departure-Patient Inst. Referrals: ALLIE ZHANG APRN (PCP) Primary Care Physician [facility] (Family) Primary Care Physician ELLIE LACY MD Mar 18, 2022 19:30
--- NOTE | 2022-03-18 20:04 | Diagnostic Imaging Report ---
INDICATION: Fall, pain. COMPARISON: None available. TECHNIQUE: Three radiographs of the right foot dated 03/18/2022. FINDINGS: Osseous demineralization. Small posterior and plantar calcaneal enthesophytes. Additional calcifications are seen overlying the expected location of the insertion site of the Achilles tendon. No additional fracture or dislocation. Lisfranc joint is well aligned. Mild scattered degenerative changes. No suspicious radiopaque foreign body. IMPRESSION: Calcifications overlying the expected insertion site of the Achilles tendon is favored to relate to dystrophic calcifications and underlying tendinopathy. Fracturing of a posterior calcaneal enthesophyte not excluded. Recommend correlation for focal pain at this location. Additional mild scattered osseous degenerative changes with osseous demineralization noted. Dictated by: Dictated on workstation # [id number]
--- NOTE | 2022-03-18 20:05 | Diagnostic Imaging Report ---
INDICATION: Fall, pain. COMPARISON: None available. TECHNIQUE: Three radiographs of the pelvis and right hip dated March 18, 2022. FINDINGS: Mild degenerative changes of the partially visualized lower lumbar spine and pubic symphysis. Acute right femoral neck fracturing is noted which is minimally impacted with minimal valgus configuration. No additional fracture or dislocation. No destructive osseous process. Phleboliths in the lower pelvis. IMPRESSION: Acute right femoral neck fracture with minimal impaction and valgus configuration. Mild scattered degenerative changes. Dictated by: Dictated on workstation # [id number]
[2022-03-18 21:04] LABS: BASOPHILS # (AUTO) 0.1 10^3/uL (0.0-0.1); BASOPHILS % (AUTO) 1 % (0-10); EOSINOPHILS # (AUTO) 0.2 10^3/uL (0.0-0.3); EOSINOPHILS % (AUTO) 2 % (0-10); HEMATOCRIT 41 % (35-52); HEMOGLOBIN 13.5 g/dL (11.5-16.0); LYMPHOCYTES # (AUTO) 1.1 10^3/uL (1.0-4.0); LYMPHOCYTES % (AUTO) 14 % (12-44); MEAN CORPUSCULAR HEMOGLOBIN 27 pg (25-34); MEAN CORPUSCULAR HGB CONC 33 g/dL (32-36); MEAN CORPUSCULAR VOLUME 81 fL (80-99); MEAN PLATELET VOLUME 10.5 fL (9.0-12.2); MONOCYTES # (AUTO) 0.9 10^3/uL (0.0-1.0); MONOCYTES % (AUTO) 11 % (0-12); NEUTROPHILS # (AUTO) 6.1 10^3/uL (1.8-7.8); NEUTROPHILS % (AUTO) 73 % (42-75); PLATELET COUNT 222 10^3/uL (130-400); WHITE BLOOD COUNT 8.4 10^3/uL (4.3-11.0)
[2022-03-18 21:23] LABS: ALBUMIN 4.3 GM/DL (3.2-4.5); BILIRUBIN,TOTAL 0.4 MG/DL (0.1-1.0); CALCIUM 9.4 MG/DL (8.5-10.1); CREATININE SERUM 0.85 MG/DL (0.60-1.30); POTASSIUM 4.2 MMOL/L (3.6-5.0); TOTAL PROTEIN 7.2 GM/DL (6.4-8.2)
[2022-03-18] MEDS ORDERED: fentaNYL INJ 100 MCG/2 ML AMP IVP ONE (22:00)
[2022-03-18 22:08] VITALS: BP 185/60
== END 2022-03-18 22:08 | disposition short-term general hospital (02) ==
LOC: EDUNIT# 19:20 → ER FS 19:28
DX: S72.001A Fracture of unspecified part of neck of right femur, initial encounter for closed fracture (principal); I48.91 Unspecified atrial fibrillation; Z28.310 Unvaccinated for COVID-19; Z79.01 Long term (current) use of anticoagulants; W01.0XXA Fall on same level from slipping, tripping and stumbling without subsequent striking against object, initial encounter; Y92.009 Unspecified place in unspecified non-institutional (private) residence as the place of occurrence of the external cause
CPT/HCPCS: 36415; 51702; 73502; 73630; 80053; 85025; 96374

== ENCOUNTER 2022-03-24 23:25 | Emergency (ER) | payer MEDICARE ==
[~2022-03-24] VITALS: Ht 162 cm; Wt 77.5 kg
[2022-03-24 23:41] LABS: BASOPHILS # (AUTO) 0.1 10^3/uL (0.0-0.1); BASOPHILS % (AUTO) 1 % (0-10); EOSINOPHILS # (AUTO) 0.2 10^3/uL (0.0-0.3); EOSINOPHILS % (AUTO) 2 % (0-10); HEMATOCRIT 27 % (35-52); HEMOGLOBIN 9.1 g/dL (11.5-16.0); LYMPHOCYTES # (AUTO) 1.3 10^3/uL (1.0-4.0); LYMPHOCYTES % (AUTO) 14 % (12-44); MEAN CORPUSCULAR HEMOGLOBIN 27 pg (25-34); MEAN CORPUSCULAR HGB CONC 34 g/dL (32-36); MEAN CORPUSCULAR VOLUME 81 fL (80-99); MEAN PLATELET VOLUME 10.2 fL (9.0-12.2); MONOCYTES # (AUTO) 1.2 10^3/uL (0.0-1.0); MONOCYTES % (AUTO) 14 % (0-12); NEUTROPHILS # (AUTO) 6.1 10^3/uL (1.8-7.8); NEUTROPHILS % (AUTO) 68 % (42-75); PLATELET COUNT 214 10^3/uL (130-400); WHITE BLOOD COUNT 8.9 10^3/uL (4.3-11.0)
[2022-03-24] MEDS ORDERED: dilTIAZem DRIP PRE-MIX 125 ML IV SCH (23:45)
[2022-03-24] MEDS ORDERED: NS (IVPB) 100 ML ONE (23:47)
[2022-03-24 23:53] LABS: INR 1.3 (0.8-1.4); PROTHROMBIN TIME PATIENT 16.3 SEC (12.2-14.7)
[2022-03-25 00:03] LABS: ALBUMIN 3.1 GM/DL (3.2-4.5); BILIRUBIN,TOTAL 0.8 MG/DL (0.1-1.0); CALCIUM 8.4 MG/DL (8.5-10.1); CREATININE SERUM 0.87 MG/DL (0.60-1.30); MAGNESIUM 2.2 MG/DL (1.6-2.4); POTASSIUM 4.3 MMOL/L (3.6-5.0); TOTAL PROTEIN 5.8 GM/DL (6.4-8.2)
[2022-03-25] MEDS ORDERED: ONDANSETRON 4 MG/2 ML (SDV) Z0FRAN IVP ONE (00:15)
--- NOTE | 2022-03-25 02:05 | ED Cardiac General ---
History of Present Illness General Chief Complaint: Cardiac/General Problems Stated Complaint: A-FIB Nursing Triage Note: PATIENT ARRIVED VIA EMS IN AFIB INITIAL RATE 150. ARRIVAL RATE 120. PATIENT RECENT ADMISSION TO [facility] FOR REHAB OF RT HIP FX THIS PAST SUNDAY. PATIENT STATES INITIALLY CHEST PAIN, STATES LESS THAN A 3:10 AT THIS TIME. PATIENT HAS A HX OF AFIB. EMS STARTED IV, ADMINISTERED 10MG CARDIZEM IN ROUTE TO ER. Source: patient, RN/MD, old records Exam Limitations: no limitations History of Present Illness Date Seen by Provider: Mar 24, 2022 Allergies and Home Medications Allergies Coded Allergies: Beef Containing Products (Verified Allergy, Unknown, 11/17/18) Iodinated Contrast Media (Verified Allergy, Unknown, 11/17/18) Penicillins (Verified Allergy, Unknown, 11/17/18) Pork/Porcine Containing Products (Verified Allergy, Unknown, 11/17/18) Bbtizke-PHN-YhP Reductase Inhibitor (Verified Allergy, Unknown, 11/17/18) propoxyphene (Verified Allergy, Unknown, 11/17/18) Patient Home Medication List Discontinued Medications Doxycycline Hyclate (Doxycycline Hyclate) 100 Mg Tablet, 100 MG PO BID Discontinued Reason: Referral/FU Appt-Addtl Prescribed by: WANDA LIPSCOMB on 12/04/19 1145 Metoprolol Tartrate (Metoprolol Tartrate) 25 Mg Tablet, 25 MG PO BID Discontinued Reason: Referral/FU Appt-Addtl Prescribed by: CORTNEY ARRIAGA on 03/01/19 0358 Metoprolol Tartrate (Metoprolol Tartrate) 25 Mg Tablet, 25 MG PO BID Discontinued Reason: Referral/FU Appt-Addtl Prescribed by: RENAE SILVA on 01/18/21 0619 Phenazopyridine HCl (Pyridium) 200 Mg Tablet, 1 TAB PO BID Discontinued Reason: Referral/FU Appt-Addtl Prescribed by: CORTNEY ARRIAGA on 03/11/20 1829 Past Gibdiyz-Hkokso-Nutnxe Hx Immunizations Up To Date Influenza Vaccine Up-to-Date: No; Not Current First/Initial COVID19 Vaccinat: unvaccinated Second COVID19 Vaccination Blake: unvaccinated Third COVID19 Vaccination Date: unvaccinated Seasonal Allergies Seasonal Allergies: No Past Medical History Surgery/Hospitalization HX: Hx HTN, A-Fib, high cholesterol, bilateral mastectomy Surgeries: Yes Breast, Orthopedic, Tonsillectomy Respiratory: No Cardiac: Yes High Cholesterol, Hypertension, Irregular Heartbeat Neurological: No Genitourinary: No Gastrointestinal: No Musculoskeletal: Yes (Left Achilles tendon rupture ) Fractures Endocrine: Yes Hypothyroidsim HEENT: Yes Glaucoma Cancer: Yes Psychosocial: No Integumentary: No Blood Disorders: No Family Medical History No Pertinent Family Hx Physical Exam Vital Signs Vital Signs - First Documented 03/24/22 23:30 Temp 37.3 Pulse 122 Resp 20 B/P (MAP) 141/67 (91) Pulse Ox 97 O2 Delivery Room Air Capillary Refill : Less Than 3 Seconds Height, Weight, BMI Height: 5'4.00" Weight: 163lbs. 0oz. [id number]; 29.00 BMI Method:Stated Procedures/Interventions Suture Size: 4-0 Progress/Results/Core Measures Results/Orders Lab Results Laboratory Tests Test 03/24/22 23:39 Range/Units White Blood Count 8.9 4.3-11.0 10^3/uL Red Blood Count 3.35 L 3.80-5.11 10^6/uL Hemoglobin 9.1 #L 11.5-16.0 g/dL Hematocrit 27 L 35-52 % Mean Corpuscular Volume 81 80-99 fL Mean Corpuscular Hemoglobin 27 25-34 pg Mean Corpuscular Hemoglobin Concent 34 32-36 g/dL Red Cell Distribution Width 15.4 H 10.0-14.5 % Platelet Count 214 130-400 10^3/uL Mean Platelet Volume 10.2 9.0-12.2 fL Immature Granulocyte % (Auto) 1 % Neutrophils (%) (Auto) 68 42-75 % Lymphocytes (%) (Auto) 14 12-44 % Monocytes (%) (Auto) 14 H 0-12 % Eosinophils (%) (Auto) 2 0-10 % Basophils (%) (Auto) 1 0-10 % Neutrophils # (Auto) 6.1 1.8-7.8 10^3/uL Lymphocytes # (Auto) 1.3 1.0-4.0 10^3/uL Monocytes # (Auto) 1.2 H 0.0-1.0 10^3/uL Eosinophils # (Auto) 0.2 0.0-0.3 10^3/uL Basophils # (Auto) 0.1 0.0-0.1 10^3/uL Immature Granulocyte # (Auto) 0.1 0.0-0.1 10^3/uL Prothrombin Time 16.3 H 12.2-14.7 SEC INR Comment 1.3 0.8-1.4 Activated Partial Thromboplast Time 41 H 24-35 SEC Sodium Level 131 L 135-145 MMOL/L Potassium Level 4.3 3.6-5.0 MMOL/L Chloride Level 99 98-107 MMOL/L Carbon Dioxide Level 21 21-32 MMOL/L Anion Gap 11 5-14 MMOL/L Blood Urea Nitrogen 17 7-18 MG/DL Creatinine 0.87 0.60-1.30 MG/DL Estimat Glomerular Filtration Rate 65 BUN/Creatinine Ratio 20 Glucose Level 114 H 70-105 MG/DL Calcium Level 8.4 L 8.5-10.1 MG/DL Corrected Calcium 9.1 8.5-10.1 MG/DL Magnesium Level 2.2 1.6-2.4 MG/DL Total Bilirubin 0.8 0.1-1.0 MG/DL Aspartate Amino Transf (AST/SGOT) 41 H 5-34 U/L Alanine Aminotransferase (ALT/SGPT) 20 0-55 U/L Alkaline Phosphatase 71 40-136 U/L Myoglobin 157.4 H <58.0 NG/ML Troponin I < 0.30 <0.30 NG/ML Total Protein 5.8 L 6.4-8.2 GM/DL Albumin 3.1 L 3.2-4.5 GM/DL My Orders Orders - CRISTIANO MANZANO MD Ekg Tracing (03/24/22 23:27) Cbc With Automated Diff (03/24/22 23:34) Magnesium (03/24/22 23:34) Chest 1 View Ap/Pa Only (03/24/22 23:34) Ekg Tracing (03/24/22 23:34) Comprehensive Metabolic Panel (03/24/22 23:34) Myoglobin Serum (03/24/22 23:34) Protime With Inr (03/24/22 23:34) Partial Thromboplastin Time (03/24/22 23:34) O2 (03/24/22 23:34) Monitor-Rhythm Ecg Trace Only (03/24/22 23:34) Ed Iv/Invasive Line Start (03/24/22 23:34) Thyroid Stimulating Hormone (03/24/22 23:34) Free T4 (Free Thyroxine) (03/24/22 23:34) Diltiazem Drip Pre-Mix (Cardizem Drip Pr (03/24/22 23:45) Troponin I Fs (03/24/22 23:39) Diltiazem Iv For Drip (Cardizem Iv For D (03/24/22 23:47) Ns (Ivpb) (Sodium Chloride 0.9% Ivpb Bag (03/24/22 23:47) Ondansetron Injection (Zofran Injectio (03/25/22 00:15) Medications Given in ED Current Medications Medications Dose Ordered Sig/Jaylan Route Start Time Stop Time Status Last Admin Dose Admin Ondansetron HCl 4 mg ONCE ONCE IVP 03/25/22 00:15 03/25/22 00:16 DC 03/25/22 00:30 4 MG Vital Signs/I&O 03/24/22 03/24/22 03/25/22 23:30 23:55 02:20 Temp 37.3 Pulse 122 122 53 Resp 20 18 B/P (MAP) 141/67 (91) 139/85 138/42 Pulse Ox 97 96 O2 Delivery Room Air Room Air Blood Pressure Mean: 103 Progress Progress Note : Progress Note Patient was given Cardizem 20 mg IV by EMS. She was then started on a drip at 10 mg/h in the ER. Work-up was relatively unremarkable. She eventually converted to sinus rhythm and was discharged back to the residential in stable condition. She was weaned off the Cardizem drip prior to discharge. EKG #1: EKG Time: 23:33 Rate: 100 Rhythm: A Fib/Flutter Comment Atrial fibrillation with RVR. No ST elevation or diagnostic depression. No abnormal intervals or axis deviation. EKG #2: EKG Time: 00:41 Rate: 62 Rhythm: Normal Sinus Intervals: Normal ECG Impression: Normal Comment Normal sinus rhythm with no ST elevation or depression. No abnormal intervals or axis deviation. This EKG represents a conversion to normal sinus rhythm from atrial fibrillation with RVR. Departure Impression Primary Impression: Atrial fibrillation with RVR Additional Impression: Paroxysmal A-fib Disposition: 01 HOME, SELF-CARE Condition: Improved Departure-Patient Inst. Referrals: LALIE ZHANG APRN (PCP) Primary Care Physician [facility]/ISAIAS (Family) Primary Care Physician Patient Instructions: Atrial Fibrillation (DC) Add. Discharge Instructions: Continue with your medications as previously prescribed. Follow-up with your director of agriculture and primary care provider on Sunday. Return to care if you have worsening symptoms. All discharge instructions reviewed with patient and/or family. Voiced understan ding. Copy Copies To 1: [facility]/CRISTIANO PORRAS MD Mar 25, 2022 02:05
[2022-03-25 02:20] VITALS: BP 138/42
--- NOTE | 2022-03-25 07:06 | Diagnostic Imaging Report ---
INDICATION: Chest pain. Time of Exam: 11:39 PM Correlation is made with prior chest of 11/27/2021. Heart size is stable. Lungs appear to be clear. No infiltrates are seen. There is no effusion or pneumothorax. Calcified nodule left midlung field appears stable and consistent with granuloma. IMPRESSION: No acute cardiopulmonary process is detected. Dictated by: Dictated on workstation # [id number]
[2022-03-25 12:07] LABS: FREE T4 (FREE THYROXINE) 0.72 NG/DL (0.70-1.48)
== END 2022-03-25 02:22 | disposition home or self-care (01) ==
LOC: EDUNIT# 23:25 → ER FS 23:26
DX: I48.0 Paroxysmal atrial fibrillation (principal)
CPT/HCPCS: 36415; 71045; 80053; 83735; 83874; 84439; 84443; 84484; 85025; 85610; 85730; 93005; 93041

== ENCOUNTER → 2022-03-29 | Outpatient (CLI) | payer MEDICARE ==
[2022-03-29 13:02] LABS: HEMATOCRIT 29 % (35-52); HEMOGLOBIN 9.4 g/dL (11.5-16.0); MEAN CORPUSCULAR HEMOGLOBIN 28 pg (25-34); MEAN CORPUSCULAR HGB CONC 33 g/dL (32-36); MEAN CORPUSCULAR VOLUME 85 fL (80-99); MEAN PLATELET VOLUME 10.8 fL (9.0-12.2); PLATELET COUNT 354 10^3/uL (130-400); WHITE BLOOD COUNT 12.9 10^3/uL (4.3-11.0)
[2022-03-29 13:50] LABS: POTASSIUM 3.8 MMOL/L (3.6-5.0)
[2022-03-29 13:51] LABS: ALBUMIN 3.4 GM/DL (3.2-4.5); BILIRUBIN,TOTAL 0.6 MG/DL (0.1-1.0); CALCIUM 8.5 MG/DL (8.5-10.1); CREATININE SERUM 0.98 MG/DL (0.60-1.30)
== END ==
PROVIDERS: ATTEND Nurse Practitioner Family
DX: S72.001S Fracture of unspecified part of neck of right femur, sequela (principal); X58.XXXS Exposure to other specified factors, sequela
CPT/HCPCS: 80053; 83735; 85027

== ENCOUNTER → 2022-07-04 | Outpatient (CLI) | payer MEDICARE | LOC: CARDFS 12:59 | PROVIDERS: ATTEND Nurse Practitioner Family | DX: I34.0 Nonrheumatic mitral (valve) insufficiency (principal); I34.81 Nonrheumatic mitral (valve) annulus calcification; I48.0 Paroxysmal atrial fibrillation | CPT/HCPCS: 93306 ==